=== PATIENT | male | born 1960 | race Caucasian/White ===

== ENCOUNTER 2020-07-28 08:21 | Outpatient (REF) | payer SELFPAY ==
[2020-07-28 09:12] LABS: Cholesterol 191 mg/dL
== END 2020-07-28 08:22 | disposition home or self-care (01) ==
LOC: HO.LNC 08:21
PROVIDERS: Visit Provider Pathology Anatomic Pathology & Clinical Pathology
DX: Z76.89 Persons encountering health services in other specified circumstances (principal)
CPT/HCPCS: 82465

== ENCOUNTER → 2020-08-27 10:28 | Outpatient (BNVA) | payer OTHER, SELFPAY | PROVIDERS: Visit Provider Physician Assistant | DX: Z76.89 Persons encountering health services in other specified circumstances (principal) ==

== ENCOUNTER 2020-08-31 07:05 | Outpatient (REF) | payer OTHER, SELFPAY ==
[2020-08-31 07:39] LABS: MANUAL DIFF FLAG NO
[2020-08-31 07:50] LABS: Basophils Percent Auto 0.5 % (0-2); Eosinophils Absolute Auto 0.2 X10*3/uL (0.0-0.4); Eosinophils Percent Auto 2.4 % (0-4); Hematocrit 45.1 % (42-52); Imm Gran Abs Auto 0.02 X10*3/uL (0.00-0.03); Imm Gran Pct Auto 0.3 % (0.0-0.4); Lymphocytes Absolute Auto 1.4 X10*3/uL (1.2-4.9); Lymphocytes Percent Auto 21.5 % (20-40); Mean Corpuscular HGB Conc 35.5 g/dl (31.0-36.0); Mean Corpuscular Hemoglobin 29.6 pg (27.0-33.0); Mean Corpuscular Volume 83.5 fL (80-98); Mean Platelet Volume 9.7 fL (9.4-12.4); Monocytes Absolute Auto 0.7 X10*3/uL (0.1-1.2); Monocytes Percent Auto 10.4 % (2-11); Neutrophils Absolute Auto 4.1 X10*3/uL (2.0-8.3); Neutrophils Percent Auto 64.9 % (45-73); Platelet Count 265 X10*3/uL (160-400); Red Cell Distribution Width 12.3 % (11.0-16.0); White Blood Count 6.3 X10*3/uL (4.8-10.8)
[2020-08-31 08:27] LABS: Prostate Specific Antigen 2.28 ng/mL (<0.05-4.0)
[2020-09-04 11:27] LABS: Testosterone, Total 491 ng/dL (250-1100)
== END 2020-08-31 07:06 | disposition home or self-care (01) ==
LOC: HO.LAB 07:05
PROVIDERS: Visit Provider Urology
DX: E29.1 Testicular hypofunction (principal); Z12.5 Encounter for screening for malignant neoplasm of prostate
CPT/HCPCS: 36415; 84153; 84403; 85025

== ENCOUNTER → 2020-09-04 10:55 | Outpatient (BNVA) | payer OTHER, SELFPAY | PROVIDERS: PCP Internal Medicine; Visit Provider Physician Assistant | DX: E66.01 Morbid (severe) obesity due to excess calories (principal); K21.9 Gastro-esophageal reflux disease without esophagitis; E78.00 Pure hypercholesterolemia, unspecified; G47.33 Obstructive sleep apnea (adult) (pediatric); G43.909 Migraine, unspecified, not intractable, without status migrainosus; M72.2 Plantar fascial fibromatosis; R73.02 Impaired glucose tolerance (oral) | CPT/HCPCS: 99202 ==

== ENCOUNTER 2020-09-10 16:27 | Outpatient (REF) | payer OTHER, SELFPAY ==
--- NOTE | 2020-09-10 16:32 | XR_ITS ---
EXAMINATION: XR KNEE, RIGHT CLINICAL INFORMATION: M25.561 - Pain in right knee COMPARISON: Radiographs right femur 03/06/2012 TECHNIQUE: Four views of the right knee. FINDINGS: There is no fracture, dislocation, or suprapatellar effusion. No joint narrowing or erosive change or chondrocalcinosis. No bony destructive process or periostitis. XR/XR knee RT 4V IMPRESSION: Normal right knee.
== END 2020-09-10 16:28 | disposition home or self-care (01) ==
LOC: HO.HMGCX 16:27
PROVIDERS: PCP Internal Medicine; Visit Provider Nurse Practitioner Family
DX: M25.561 Pain in right knee (principal)
CPT/HCPCS: 73564

== ENCOUNTER 2020-09-11 10:30 | Outpatient (REF) | payer OTHER, SELFPAY ==
--- NOTE | 2020-09-11 10:31 | US_ITS ---
EXAMINATION: US VENOUS ULTRASOUND WITH DOPPLER LOWER EXTREMITY, RIGHT CLINICAL INFORMATION: Right knee pain COMPARISON: None TECHNIQUE: Ultrasound of the deep veins is performed from the hip to the calf with compression sonography and color and pulse Doppler assessment. Spectral analysis with color-flow imaging is performed. FINDINGS: There is normal venous compression and respiratory variation and augmented flow. The visualized common femoral vein, superficial femoral vein, profunda femoral vein, popliteal vein, and the trifurcation region shows no evidence of deep venous thrombosis. There is no significant popliteal fossa cyst. US/US venous duplex LE RT IMPRESSION: No DVT demonstrated in the right lower extremity.
== END 2020-09-11 10:31 | disposition home or self-care (01) ==
LOC: HO.HMGCX 10:30
PROVIDERS: PCP Internal Medicine; Visit Provider Nurse Practitioner Family
DX: M25.561 Pain in right knee (principal); R60.0 Localized edema
CPT/HCPCS: 93971

== ENCOUNTER → 2020-09-15 08:44 | Outpatient (BNVA) | payer OTHER, SELFPAY | PROVIDERS: PCP Internal Medicine; Visit Provider Urology | DX: R36.1 Hematospermia (principal); E29.1 Testicular hypofunction; R33.9 Retention of urine, unspecified | CPT/HCPCS: Q3014 ==

== ENCOUNTER → 2020-09-29 08:49 | Outpatient (BNVA) | payer OTHER, SELFPAY | PROVIDERS: PCP Internal Medicine; Visit Provider Urology | DX: Z13.89 Encounter for screening for other disorder (principal) | CPT/HCPCS: 99212 ==

== ENCOUNTER → 2020-10-28 13:02 | Outpatient (BNVA) | payer OTHER, SELFPAY | PROVIDERS: PCP Internal Medicine; Visit Provider Urology | DX: N41.9 Inflammatory disease of prostate, unspecified (principal) | CPT/HCPCS: 52000; 81002; 99212 ==

== ENCOUNTER → 2020-12-04 14:56 | Outpatient (BNVA) | payer OTHER, SELFPAY | PROVIDERS: PCP Internal Medicine; Visit Provider Urology | CPT/HCPCS: Q3014 ==

== ENCOUNTER → 2021-01-08 15:19 | Outpatient (BNVA) | payer OTHER, SELFPAY | PROVIDERS: PCP Internal Medicine; Visit Provider Urology | CPT/HCPCS: Q3014 ==

== ENCOUNTER → 2021-02-01 10:03 | Outpatient (REF) | payer OTHER, SELFPAY | LOC: HO.SL 10:03 | PROVIDERS: PCP Internal Medicine; Visit Provider Internal Medicine | DX: G47.33 Obstructive sleep apnea (adult) (pediatric) (principal) | CPT/HCPCS: 95806 ==

== ENCOUNTER → 2021-02-11 12:53 | Outpatient (BNVA) | payer OTHER, SELFPAY | PROVIDERS: PCP Internal Medicine; Visit Provider Internal Medicine | DX: E66.01 Morbid (severe) obesity due to excess calories (principal); G47.33 Obstructive sleep apnea (adult) (pediatric) | CPT/HCPCS: 99202 ==

== ENCOUNTER → 2021-02-18 11:59 | Outpatient (BNVA) | payer OTHER, SELFPAY | PROVIDERS: Visit Provider Urology | DX: Z13.89 Encounter for screening for other disorder (principal) | CPT/HCPCS: Q3014 ==

== ENCOUNTER → 2021-04-12 11:17 | Outpatient (BNVA) | payer OTHER, SELFPAY | PROVIDERS: PCP Internal Medicine; Visit Provider Internal Medicine | DX: G47.33 Obstructive sleep apnea (adult) (pediatric) (principal); E66.01 Morbid (severe) obesity due to excess calories; Z79.899 Other long term (current) drug therapy | CPT/HCPCS: 99212 ==

== ENCOUNTER 2021-04-16 10:27 | Outpatient (REF) | payer OTHER, SELFPAY ==
[2021-04-16 11:01] LABS: MANUAL DIFF FLAG NO
[2021-04-16 11:11] LABS: Basophils Percent Auto 0.7 % (0-2); Eosinophils Absolute Auto 0.2 X10*3/uL (0.0-0.4); Eosinophils Percent Auto 2.7 % (0-4); Hematocrit 42.8 % (42-52); Hemoglobin 14.8 g/dl (14.0-18.0); Imm Gran Abs Auto 0.01 X10*3/uL (0.00-0.03); Imm Gran Pct Auto 0.2 % (0.0-0.4); Lymphocytes Absolute Auto 1.3 X10*3/uL (1.2-4.9); Lymphocytes Percent Auto 22.4 % (20-40); Mean Corpuscular HGB Conc 34.6 g/dl (31.0-36.0); Mean Corpuscular Hemoglobin 27.7 pg (27.0-33.0); Mean Corpuscular Volume 80.1 fL (80-98); Mean Platelet Volume 10.1 fL (9.4-12.4); Monocytes Absolute Auto 0.6 X10*3/uL (0.1-1.2); Monocytes Percent Auto 10.6 % (2-11); Neutrophils Absolute Auto 3.6 X10*3/uL (2.0-8.3); Neutrophils Percent Auto 63.4 % (45-73); Platelet Count 259 X10*3/uL (160-400); Red Blood Count 5.34 X10*6/uL (4.60-5.80); Red Cell Distribution Width 14.7 % (11.0-16.0); White Blood Count 5.6 X10*3/uL (4.8-10.8)
[2021-04-16 11:26] LABS: Alanine Aminotransferase 28 U/L (0-40); Albumin Level 4.2 g/dL (3.5-5.0); Alkaline Phosphatase 62 U/L (39-117); Anion Gap 10 (12-20); Aspartate Amino Transferase 25 U/L (5-37); Bilirubin Total 0.8 mg/dL (0.0-1.0); Blood Urea Nitrogen 12 mg/dL (9-16); Calcium 9.3 mg/dL (8.4-10.2); Carbon Dioxide 26 mmol/L (22-29); Chloride 105 mmol/L (96-108); Cholesterol 191 mg/dL; Estimated Glomerular Filt Rate > 60; Glucose Random 96 mg/dL (60-115); HDL Cholesterol 51 mg/dL; LDL Cholesterol Calculated 121 mg/dl; Potassium 4.4 mmol/L (3.3-5.1); Sodium 137 mmol/L (135-145); Total Protein 6.7 g/dL (6.5-8.0); Triglycerides 95 mg/dL
[2021-04-16 11:46] LABS: Prostate Specific Antigen Scr 3.19 ng/mL (<0.05-4.0)
[2021-04-16 12:05] LABS: Estimated Average Glucose 111 mg/dL; Hemoglobin A1c % 5.5 %
[2021-04-22 19:31] LABS: Testosterone, Free 119.6 pg/mL (35.0-155.0); Testosterone, Total 598 ng/dL (250-1100)
== END 2021-04-16 10:28 | disposition home or self-care (01) ==
LOC: HO.LAB 10:27
PROVIDERS: PCP Internal Medicine; Visit Provider Internal Medicine
DX: Z12.5 Encounter for screening for malignant neoplasm of prostate (principal); R73.02 Impaired glucose tolerance (oral); E29.1 Testicular hypofunction
CPT/HCPCS: 36415; 80053; 80061; 83036; 84153; 84402; 84403; 84439; 84443; 85025

== ENCOUNTER → 2021-05-05 11:02 | Outpatient (BNVA) | payer OTHER, SELFPAY | PROVIDERS: PCP Internal Medicine; Visit Provider Internal Medicine | DX: G47.33 Obstructive sleep apnea (adult) (pediatric) (principal); E66.01 Morbid (severe) obesity due to excess calories | CPT/HCPCS: 99212 ==

== ENCOUNTER → 2021-08-24 13:44 | Outpatient (BNVA) | payer OTHER, SELFPAY | PROVIDERS: PCP Internal Medicine; Visit Provider Urology | DX: N32.81 Overactive bladder (principal); N31.8 Other neuromuscular dysfunction of bladder; R35.1 Nocturia; E29.1 Testicular hypofunction | CPT/HCPCS: 51798; 99212 ==

== ENCOUNTER → 2021-09-28 09:43 | Outpatient (BNVA) | payer OTHER, SELFPAY | PROVIDERS: PCP Internal Medicine; Visit Provider Urology | DX: Z13.89 Encounter for screening for other disorder (principal) | CPT/HCPCS: Q3014 ==

== ENCOUNTER 2021-10-29 08:28 | Outpatient (REF) | payer OTHER, SELFPAY ==
--- NOTE | ~2021-10-29 | FL_ITS ---
EXAMINATION: FL UPPER GI CONTRAST STUDY CLINICAL INFORMATION: Dysphagia COMPARISON: None TECHNIQUE: Routine upper GI air-contrast study was performed. FINDINGS: Following oral administration of thick barium and effervescent granules there is a small Zenker's nubbing but no diverticulum seen. Mild prominence of cricoesophageal sphincter is present. There is no obstruction. Otherwise there is normal propagation of bolus from the oral cavity through the pharynx, esophagus into stomach without any evidence of obstruction, narrowing or stricture. On placing the patient supine and prone, the course, caliber and the peristalsis of the stomach and the duodenum is normal. There are increased secretions likely from hyperacidity. No gastroesophageal reflux or hiatal hernia seen. The mucosal pattern of the stomach and the duodenum is normal except for a moderate to large diverticulum arising off the second segment of the duodenum. FL/FL upper GI w air w Ba Swallow IMPRESSION: Unremarkable upper GI exam except for mild hyperacidity. No gastroesophageal reflux or hiatal hernia.
== END 2021-10-29 08:29 | disposition home or self-care (01) ==
LOC: HO.XRAY 08:28
PROVIDERS: Visit Provider Internal Medicine
DX: R13.10 Dysphagia, unspecified (principal); K21.9 Gastro-esophageal reflux disease without esophagitis
CPT/HCPCS: 74246

== ENCOUNTER → 2021-11-01 09:30 | Outpatient (BNVA) | payer OTHER, SELFPAY | PROVIDERS: PCP Internal Medicine; Visit Provider Internal Medicine | DX: G47.33 Obstructive sleep apnea (adult) (pediatric) (principal); E29.1 Testicular hypofunction; E66.01 Morbid (severe) obesity due to excess calories; Z68.42 Body mass index [BMI] 45.0-49.9, adult; Z99.89 Dependence on other enabling machines and devices; Z79.899 Other long term (current) drug therapy | CPT/HCPCS: 99212 ==

== ENCOUNTER → 2021-11-24 10:43 | Outpatient (BNVA) | payer OTHER, SELFPAY | PROVIDERS: PCP Internal Medicine; Visit Provider Orthopaedic Surgery | DX: M65.342 Trigger finger, left ring finger (principal) | CPT/HCPCS: 20550; 99202; J1100 ==

== ENCOUNTER → 2022-03-31 08:18 | Outpatient (BNVA) | payer OTHER, SELFPAY | PROVIDERS: PCP Internal Medicine; Visit Provider Urology | DX: R35.1 Nocturia (principal); N32.81 Overactive bladder | CPT/HCPCS: Q3014 ==

== ENCOUNTER → 2022-05-03 10:57 | Outpatient (BNVA) | payer OTHER, SELFPAY | PROVIDERS: PCP Internal Medicine; Visit Provider Internal Medicine | DX: E66.01 Morbid (severe) obesity due to excess calories (principal); G47.33 Obstructive sleep apnea (adult) (pediatric); Z99.89 Dependence on other enabling machines and devices | CPT/HCPCS: 99212; Q3014 ==

== ENCOUNTER → 2022-05-19 13:09 | Outpatient (BNVA) | payer OTHER, SELFPAY | PROVIDERS: PCP Internal Medicine; Visit Provider Urology | DX: E29.1 Testicular hypofunction (principal) | CPT/HCPCS: Q3014 ==

== ENCOUNTER 2022-06-02 06:16 | Outpatient (REF) | payer OTHER, SELFPAY ==
[2022-06-02 07:33] LABS: Hematocrit 46.1 % (42.0-52.0); Hemoglobin 15.2 g/dl (14.0-18.0); Mean Corpuscular Hemoglobin 26.4 pg (27.0-33.0); Mean Corpuscular Volume 80.2 fL (80.0-98.0); Mean Platelet Volume 9.6 fL (9.4-12.4); Platelet Count 292 X10*3/uL (160-400); Red Blood Count 5.75 X10*6/uL (4.60-5.80)
[2022-06-02 08:15] LABS: Prostate Specific Antigen 2.96 ng/mL (<0.05-4.0)
[2022-06-08 10:56] LABS: Testosterone, Total 473 ng/dL (250-1100)
== END 2022-06-02 06:17 | disposition home or self-care (01) ==
LOC: HO.LAB 06:16
PROVIDERS: PCP Internal Medicine; Visit Provider Urology
DX: Z12.5 Encounter for screening for malignant neoplasm of prostate (principal); E29.1 Testicular hypofunction
CPT/HCPCS: 36415; 84153; 84403; 85027

== ENCOUNTER 2022-06-06 10:05 | Day surgery (SDC) | payer OTHER, SELFPAY ==
[2022-05-31 16:22] VITALS: BMI 42.4
--- NOTE | 2022-06-03 10:42 | P.CONAN_ITS ---
Documented by User: Dalia Kumar NP 06/03/22 10:43 HPI - Anesthesia Eval Consult details Narrative: 61yo M for Cystoscopy Botox Injection Pulmo cleared PMFSH Active Problems Active Problems: All Active Problems (Updated 05/03/22 @ 11:20 by Rafael Cramer MD) Trigger finger, left ring finger (Acute) Trigger finger of left hand (Acute) Tubular adenoma of colon (Acute) Gastric hyperacidity (Acute) Foreign body of toe of right foot (Acute) Myalgia (Acute) Hypertension (Acute) Generalized anxiety disorder (Acute) Morbid obesity (Acute) Obstructive sleep apnea (adult) (pediatric) (Acute) Nocturia more than twice per night (Acute) Overactive bladder (Acute) Prostatitis (Acute) Knee pain, right (Acute) Bladder outlet obstruction (Acute) GERD (gastroesophageal reflux disease) (Acute) Neuropathy (Acute ~04/2020) Migraine (Acute ~12/2019) Plantar fasciitis, bilateral (Acute) Impaired glucose tolerance (Acute) Hypercholesterolemia (Acute) Urinary retention (Acute) Hypogonadism in male (Acute) Obstructive sleep apnea (Acute) Past Medical History Medical History Acute meniscal tear of left knee Axillary nerve injury Chondromalacia, patella Dislocation of right shoulder joint GERD (gastroesophageal reflux disease) Hematospermia Hemospermia Hypercholesterolemia Hypogonadism in male Impaired glucose tolerance Iron deficiency anemia Knee pain Osteochondritis dissecans, 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 Plantar fasciitis, bilateral Small bowel obstruction Tubular adenoma of colon Umbilical hernia, incarcerated Urinary retention Family History Family History Father TIA (transient ischemic attack) Asthma Stroke Diabetes Hypertension Mother Asthma Cancer Dementia Paternal Grandmother Lung cancer Maternal Aunt Cancer Son Substance use disorder Surgical History Surgical History History of meniscal tear History of shoulder surgery History of umbilical hernia repair Social History Social History Housing: House Alcohol intake: current Alcohol intake frequency: holidays/special occasions only Patient Tobacco Use Status: Never used Tobacco e-Cigarette/Vaping Use: Never Used Second Hand Smoke Exposure: No Use of substances other than those prescribed or required for medical reasons: No Are you DNR?: No Advance Directives: No Advance Directives Information Provided: Yes service: No Current occupational status: disabled Cognitive needs: No Hearing needs: No Vision needs: No Meds Allergies Allergy/AdvReac Type Severity Reaction Status Date / Time No Known Allergies Allergy Verified 05/16/22 15:09 Home Medications Medication Instructions Recorded Confirmed Last Taken Type cholecalciferol (vitamin D3) 25 25 mcg PO DAILY 05/28/20 05/19/22 Unknown History mcg (1,000 unit) capsule magnesium oxide 500 mg capsule 500 mg PO DAILY 05/28/20 05/19/22 Unknown History multivitamin 1 tab PO DAILY 05/28/20 05/19/22 Unknown History Exam Exam Date and Time: June 03, 2022 1042 Height,Weight and Vital Signs: Height 5 ft 4 in Weight 112.037 kg Pertinent Lab Results Pertinent Lab Results: Laboratory Tests 06/02/22 06:47 WBC 6.0 Hgb 15.2 Hct 46.1 Plt Count 292 Assessment and Plan Assessment Anesthesia Assessment: Chart Reviewed Documented by User: Yolie eLyva MD 06/06/22 12:08 [facility] Past Medical History Medical History Acute meniscal tear of left knee Axillary nerve injury Chondromalacia, patella Dislocation of right shoulder joint GERD (gastroesophageal reflux disease) Hematospermia Hemospermia Hypercholesterolemia Hypogonadism in male Impaired glucose tolerance Iron deficiency anemia Knee pain Osteochondritis dissecans, 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 Plantar fasciitis, bilateral Small bowel obstruction Tubular adenoma of colon Umbilical hernia, incarcerated Urinary retention Family History Family History Father TIA (transient ischemic attack) Asthma Stroke Diabetes Hypertension Mother Asthma Cancer Dementia Paternal Grandmother Lung cancer Maternal Aunt Cancer Son Substance use disorder Surgical History Surgical History History of meniscal tear History of shoulder surgery History of umbilical hernia repair History of Problems with Anesthesia: No Social History Social History Housing: House Alcohol intake: current Alcohol intake frequency: holidays/special occasions only Patient Tobacco Use Status: Never used Tobacco e-Cigarette/Vaping Use: Never Used Second Hand Smoke Exposure: No Use of substances other than those prescribed or required for medical reasons: No Are you DNR?: No Advance Directives: No Advance Directives Information Provided: Yes service: No Current occupational status: disabled Cognitive needs: No Hearing needs: No Vision needs: No Meds Allergies Allergy/AdvReac Type Severity Reaction Status Date / Time No Known Allergies Allergy Verified 05/16/22 15:09 Home Medications Medication Instructions Recorded Confirmed Last Taken Type cholecalciferol (vitamin D3) 25 25 mcg PO DAILY 05/28/20 05/19/22 Unknown History mcg (1,000 unit) capsule magnesium oxide 500 mg capsule 500 mg PO DAILY 05/28/20 05/19/22 Unknown History multivitamin 1 tab PO DAILY 05/28/20 05/19/22 Unknown History Exam Airway Mallampati Class: III TM Dist: >3cm Neck ROM: Full Loose/Missing/Broken Teeth: No Heart: RRR Lungs: CTA Assessment and Plan Assessment Anesthesia Assessment: Anesthesia Plan Discussed Final Anesthetic Review History of Problems with Anesthesia: No NPO: Yes ASA Class: III Final Preanesthetic Review: Meds/Allgs Chart Reviewed, Consent Obtained/Reviewed and Anes Risks/Benef Reviewed Patient Risk: Intermediate Procedure Risk: Low Anesthetic Plan Anesthetic Plan: MAC: Disposition: Standard PACU
[2022-06-06] VITALS (8 sets, daily range): BP systolic 125–142; BP diastolic 79–93; PULSE 68–94; RESP 18–20; TEMP 36.1–37.3; O2SAT 96–98; BMI 41.1
[2022-06-06] MEDS: Acetaminophen 325 MG TABLET 650 MG PO (10:45)
[2022-06-06] MEDS: Lactated Ringers 1,000 ML 100 ML IVCONT (10:46)
[2022-06-06] MEDS: levoFLOXacin 500 MG TABLET PO (10:46)
--- NOTE | 2022-06-06 12:23 | P.HPSUR_ITS ---
Pre-Procedural Eval Section A Date of Service: 06/06/22 The patient is an INPATIENT: No Changes since office visit: No Cold of Flu in the past 2 weeks, No New Medical Problems, No Changes in Medication and No Patient answered all questions The History & Physical has been completed within 30 days and I have reviewed it.: No Section B Chief Complaint: overactive bladder Details of Present Illness: Failed oral medications Relevant Family History (Specify if Yes): No Relevant Social History: None Present Medications: see Short Stay Collaborative assessment Medical History: Significant History History of Previous Operations: No relevant previous surgery Allergies: Allergies Allergy/AdvReac Type Severity Reaction Status Date / Time No Known Allergies Allergy Verified 05/16/22 15:09 Review of Systems Sugical H&P ROS: Negative: Constitution, Cardiovascular, Respiratory, Neurological, Psychiatric, Hem-Onc, Allergic/Immunologic, Gastrointestinal, Genitourinary, Musculoskeletal, Integumentary, Endocrine and Eyes/Ears/Nose/Throat Exam Surgical H&P Exam: Normal: HEENT, Normal: Heart, Normal: Lungs, Normal: Ext remities, Normal: Abdomen, Normal: Skin and Normal: Neurological Plan Diagnosis/Plan: Unchanged (Cystoscopy and Botox bladder injection) I have reviewed the history and physical and performed a pertinent physical examination on my patient. No changes have occurred unless specified.
--- NOTE | 2022-06-06 12:47 | W.PM.OPN ---
Operative Note Operative Note Date of Service: 06/06/22 Narrative: PreOperative Diagnosis: Overactive bladder with failure of medications Post Operative Diagnosis: Overactive bladder with failure of medications Procedure: Cystoscopy with injection 100 units Botox intra detrusor muscle Surgeon: Dr Harjit Awan Anesthesia: Sedation Indications for procedure: Is a very pleasant 61 yr male. Has persistent urgency and frequency. Has failed oral medications. For cystoscopy and Botox injection. Is aware of the risks and benefits particularly related to urinary retention and possible infection. Procedure: After informed consent was verified the patient was brought to the operating room and placed in a supine position. Anesthesia was administered per protocol. Cystoscopy performed with 22 [place] cystoscope. Bladder was emptied of urine. Bladder was refilled. Using 100 units of Botox mixed in 10 cc of normal saline injections were placed at the back wall of the bladder. 0.5cc placed at each injection site. Injections were placed in a grid 5 across and for high. Injections were placed from the inferior to superior position. Trabeculations on the bladder wall with targeted for each injection site. Procedure was tolerated well. Patient was extubated and transferred in stable condition to the recovery area. Pathology: None Drains: None
[2022-06-06] MEDS: Phenazopyridine HCL 100 MG TABLET PO (14:06)
== END 2022-06-06 14:07 | disposition home or self-care (01) ==
PROVIDERS: PCP Internal Medicine; Visit Provider Urology
PROC: 3E0K8GC Introduction of Other Therapeutic Substance into Genitourinary Tract, Via Natural or Artificial Opening Endoscopic (ICD-10-PCS; CPT 52287; principal; 2022-06-06 12:30)
DX: N32.81 Overactive bladder (principal); N32.89 Other specified disorders of bladder; E29.1 Testicular hypofunction; N52.9 Male erectile dysfunction, unspecified; Z79.899 Other long term (current) drug therapy
CPT/HCPCS: 52287; J0585; J2250

== ENCOUNTER → 2022-06-21 10:42 | Outpatient (BNVA) | payer OTHER, SELFPAY | PROVIDERS: PCP Internal Medicine; Visit Provider Urology | DX: N32.0 Bladder-neck obstruction (principal); R35.1 Nocturia; R39.15 Urgency of urination | CPT/HCPCS: 51798; 99212 ==

== ENCOUNTER → 2022-07-05 09:30 | Outpatient (BNVA) | payer OTHER, SELFPAY | PROVIDERS: PCP Internal Medicine; Visit Provider Urology | DX: N32.81 Overactive bladder (principal) | CPT/HCPCS: 51798 ==

== ENCOUNTER → 2022-07-19 09:30 | Outpatient (BNVA) | payer OTHER, SELFPAY | PROVIDERS: PCP Internal Medicine; Visit Provider Urology | DX: N32.81 Overactive bladder (principal) | CPT/HCPCS: 51798 ==

== ENCOUNTER 2022-09-16 08:24 | Day surgery (SDC) | payer OTHER, SELFPAY ==
[2022-09-16 08:38] VITALS: BMI 43.7
[2022-09-16 08:45] VITALS: BP 142/83; PULSE 82; RESP 16; TEMP 36.4; O2SAT 96
[2022-09-16] MEDS: Lactated Ringers 1,000 ML 50 ML IVCONT (09:01)
--- NOTE | 2022-09-16 09:30 | P.CONAN_ITS ---
HPI - Anesthesia Eval Consult details Narrative: For EGD and colonoscopy. [facility] Active Problems Active Problems: All Active Problems (Updated 06/21/22 @ 11:46 by Harjit Awan MD) Urinary urgency (Acute) Trigger finger, left ring finger (Acute) Trigger finger of left hand (Acute) Tubular adenoma of colon (Acute) Gastric hyperacidity (Acute) Foreign body of toe of right foot (Acute) Myalgia (Acute) Hypertension (Acute) Generalized anxiety disorder (Acute) Morbid obesity (Acute) Obstructive sleep apnea (adult) (pediatric) (Acute) Nocturia more than twice per night (Acute) Overactive bladder (Acute) Prostatitis (Acute) Knee pain, right (Acute) Bladder outlet obstruction (Acute) GERD (gastroesophageal reflux disease) (Acute) Neuropathy (Acute ~04/2020) Migraine (Acute ~12/2019) Plantar fasciitis, bilateral (Acute) Impaired glucose tolerance (Acute) Hypercholesterolemia (Acute) Urinary retention (Acute) Hypogonadism in male (Acute) Obstructive sleep apnea (Acute) Past Medical History Medical History Acute meniscal tear of left knee Axillary nerve injury Chondromalacia, patella Dislocation of right shoulder joint GERD (gastroesophageal reflux disease) Hematospermia Hemospermia Hypercholesterolemia Hypogonadism in male Impaired glucose tolerance Iron deficiency anemia Knee pain Osteochondritis dissecans, 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 Plantar fasciitis, bilateral Small bowel obstruction Tubular adenoma of colon Umbilical hernia, incarcerated Urinary retention Family History Family History Father TIA (transient ischemic attack) Asthma Stroke Diabetes Hypertension Mother Asthma Cancer Dementia Paternal Grandmother Lung cancer Maternal Aunt Cancer Son Substance use disorder Family history of problems with anesthesia: No Surgical History Surgical History History of meniscal tear History of shoulder surgery History of umbilical hernia repair History of Problems with Anesthesia: No Social History Social History Housing: House Alcohol intake: current Alcohol intake frequency: holidays/special occasions only Patient Tobacco Use Status: Never used Tobacco e-Cigarette/Vaping Use: Never Used Second Hand Smoke Exposure: No Use of substances other than those prescribed or required for medical reasons: No Are you DNR?: No Advance Directives: No Advance Directives Information Provided: Yes service: No Current occupational status: disabled Cognitive needs: No Hearing needs: No Vision needs: No Meds Allergies Allergy/AdvReac Type Severity Reaction Status Date / Time No Known Allergies Allergy Verified 06/21/22 11:38 Active Medications: Current Medications Lactated Ringer's (Lr) 1,000 mls @ 50 mls/hr IVCONT .Q20H PROSPER Last Admin: 09/16/22 09:01 Dose: 50 mls/hr Sodium Biphosphate/Sodium Phosphate (Sodium Phosphate,[place]-Dibasic 133 Ml Enema) 133 ml [place] ONCE PRN PRN Reason: Poor Colonoscopy Prep Results Home Medications Medication Instructions Recorded Confirmed Last Taken Type cholecalciferol (vitamin D3) 25 25 mcg PO DAILY 05/28/20 09/16/22 Unknown History mcg (1,000 unit) capsule magnesium oxide 500 mg capsule 500 mg PO DAILY 05/28/20 09/16/22 Unknown History multivitamin 1 tab PO DAILY 05/28/20 09/16/22 Unknown History syringe with needle 1 mL 27 x 1/2 #25 ea 06/20/22 Unknown History (BD Tuberculin Syringe) Exam Exam Date and Time: September 16, 2022 0930 Height,Weight and Vital Signs: Height 5 ft 4 in Weight 115.666 kg Last Vital Signs Temp 97.6 F 09/16/22 08:45 Pulse 82 09/16/22 08:45 Resp 16 09/16/22 08:45 BP 142/83 H 09/16/22 08:45 Pulse Ox 96 09/16/22 08:45 O2 Del Method 09/16/22 08:45 Airway Mallampati Class: II TM Dist: <=3cm Neck ROM: Full Heart: ok Lungs: ok Assessment and Plan Assessment Anesthesia Assessment: Anesthesia Plan Discussed and Chart Reviewed Final Anesthetic Review Family History of Problems with Anesthesia: No History of Problems with Anesthesia: No NPO: Yes ASA Class: III Final Preanesthetic Review: No Changes in Pt Med Stat, Meds/Allgs Chart Reviewed, Consent Obtained/Reviewed and Anes Risks/Benef Reviewed Patient Risk: Intermediate Procedure Risk: Intermediate Anesthetic Plan Anesthetic Plan: MAC: and Agree w/ Assess. and Plan Disposition: Standard PACU
[2022-09-16 10:46] VITALS: BP 114/71; PULSE 71; RESP 18; TEMP 36.1; O2SAT 97
--- NOTE | 2022-09-16 10:49 | PM.OP ---
Brief Operative Note Date of Service: 09/16/22 Pre-op diagnosis: Belching, Screening Post-op diagnosis: other (Erosive gastritis, Small hiatal hernia, Polyps) Surgeon: Caesar Osman Anesthesia: MAC Was an Public Information Director used for this Procedure?: No Estimated blood loss (mL): 2.0 Pathology: other (A. Gastric antrum B. EG Junction at 39cm C. Colon polyp at 20cm D. Rectal polyp) Condition: stable Disposition: PACU
[2022-09-16 11:05] VITALS: BP 123/87; PULSE 64; RESP 18; TEMP 36.1; O2SAT 99
--- NOTE | 2022-09-16 12:19 | OP_ITS ---
SURGEON: Caesar Osman MD INDICATIONS: The patient presents for evaluation of chronic belching, personal history of tubular adenoma of the colon, and need for colorectal cancer screening. Full consent has been obtained from him for both procedures, including risks of bleeding and perforation. PREOPERATIVE DIAGNOSIS: POSTOPERATIVE DIAGNOSIS: PROCEDURE PERFORMED: Esophagogastroduodenoscopy with biopsies and colonoscopy to the cecum with biopsy and removal of polyps. ESTIMATED BLOOD LOSS: COMPLICATIONS: ANESTHESIA: Monitored anesthesia care. ASSISTANTS: SPECIMENS: PREOPERATIVE DIAGNOSES: Belching, personal history of tubular adenoma of the colon, colorectal cancer screening. POSTOPERATIVE DIAGNOSES: Belching, personal history of tubular adenoma of the colon, colorectal cancer screening, erosive gastritis, small hiatal hernia, small colon polyps, diverticulosis, internal hemorrhoids. DESCRIPTION OF PROCEDURE: The patient was placed in the left lateral decubitus position. The Olympus video gastroscope was passed in the posterior oropharynx and upper esophagus under direct vision. The scope was passed slowly into the distal esophagus. The gastroesophageal junction appeared at 39 cm. There was some slight erythema and edema, but no evidence of erosive esophagitis nor Armstrong mucosa. There was a small hiatal hernia. The scope was advanced into the pylorus, and the duodenum was cannulated to the descending portion. The duodenum including the bulb appeared normal without mass or ulceration. The scope was withdrawn back in the stomach. The gastric antrum and areas of some erosions, erythema, and edema. There was good peristalsis. There was no mass nor ulceration. Biopsies were obtained from the gastric antrum. The scope was retroflexed visualizing the proximal stomach carefully, which appeared normal, without any sign of mass or ulceration. The scope was straightened and withdrawn back to the esophagus. Biopsies were obtained at the EG junction at 39 cm. Proximal to this, the esophageal mucosa appeared normal. The scope was withdrawn from the patient. He tolerated the procedure well, and was turned around for the colonoscopy. The digital rectal exam revealed no abnormalities. The Olympus video pediatric colonoscope was entered into the rectum and advanced into the cecum with the assistance of the abdominal wall pressure. once in the cecum, I did identify a normal-appearing cecal pouch with appendiceal orifice and a normal-appearing ileocecal valve. The entire cecum and ileocecal valve appear normal. Scope was slowly withdrawn assessing all mucosal surface carefully. Preparation was excellent. At 20 cm and in the rectum were flat 4 mm or 5 mm polyps, which were each biopsied and completely removed with the cold biopsy forceps. I did not visualize any other polyps, colitis, nor angiodysplasia. There was a mild amount of sigmoid diverticulosis. In the rectum, the scope was retroflexed visualizing some small internal hemorrhoids, but no other pathology. The rectal mucosa appeared normal. The scope was straightened and withdrawn from the patient. He tolerated the procedure well and was returned to the recovery area in stable condition. IMPRESSION: 1. Erosive gastritis. 2. Small hiatal hernia, gastroesophageal reflux. 3. Small colon polyps. 4. Diverticulosis. 5. Internal hemorrhoids. PLAN: The results of the pathology will be checked. I would recommend a repeat colonoscopy in 5 years for further surveillance. He was advised not to use any aspirin or NSAIDs for at least 1 week. Given the upper endoscopy finding and his symptoms of belching, I shall start him on omeprazole 20 mg daily to see if that could give him any relief. He was advised to see me later in a year for followup. MD YANG Heredia/RAHUL / [id number]
== END 2022-09-16 11:20 | disposition home or self-care (01) ==
PROVIDERS: PCP Internal Medicine; Visit Provider Internal Medicine
PROC: (CPT 45380; principal; 2022-09-16 09:30)
DX: Z12.11 Encounter for screening for malignant neoplasm of colon (principal); Z86.010 Personal history of colon polyps; D12.8 Benign neoplasm of rectum; K63.5 Polyp of colon; K57.30 Diverticulosis of large intestine without perforation or abscess without bleeding; K64.8 Other hemorrhoids; K21.9 Gastro-esophageal reflux disease without esophagitis; R14.2 Eructation; K29.50 Unspecified chronic gastritis without bleeding; K44.9 Diaphragmatic hernia without obstruction or gangrene; G47.33 Obstructive sleep apnea (adult) (pediatric); Z99.89 Dependence on other enabling machines and devices; Z79.899 Other long term (current) drug therapy
CPT/HCPCS: 45380; 43239; 88305; 88342; J3010

== ENCOUNTER → 2022-09-23 11:16 | Outpatient (BNVA) | payer OTHER, SELFPAY | PROVIDERS: PCP Internal Medicine; Visit Provider Urology | DX: N40.1 Benign prostatic hyperplasia with lower urinary tract symptoms (principal); N13.8 Other obstructive and reflux uropathy; E29.1 Testicular hypofunction; R39.15 Urgency of urination; Z79.899 Other long term (current) drug therapy | CPT/HCPCS: 51798; 99212 ==

== ENCOUNTER → 2022-11-15 10:39 | Outpatient (BNVA) | payer OTHER, SELFPAY | PROVIDERS: PCP Internal Medicine; Visit Provider Internal Medicine | DX: E66.01 Morbid (severe) obesity due to excess calories (principal); G47.33 Obstructive sleep apnea (adult) (pediatric); Z68.42 Body mass index [BMI] 45.0-49.9, adult | CPT/HCPCS: 99212 ==

== ENCOUNTER → 2022-12-01 08:58 | Outpatient (BNVA) | payer OTHER, SELFPAY | PROVIDERS: PCP Internal Medicine; Visit Provider Urology | DX: E29.1 Testicular hypofunction (principal); R35.1 Nocturia; N40.1 Benign prostatic hyperplasia with lower urinary tract symptoms; N13.8 Other obstructive and reflux uropathy | CPT/HCPCS: 51798; 99212 ==

== ENCOUNTER 2023-05-16 07:08 | Outpatient (REF) | payer OTHER, SELFPAY ==
[2023-05-16 07:34] LABS: Hematocrit 41.9 % (42.0-52.0); Hemoglobin 13.4 g/dl (14.0-18.0); Mean Corpuscular Hemoglobin 24.1 pg (27.0-33.0); Mean Corpuscular Volume 75.4 fL (80.0-98.0); Mean Platelet Volume 9.4 fL (9.4-12.4); Platelet Count 288 X10*3/uL (160-400); Red Blood Count 5.56 X10*6/uL (4.60-5.80); Red Cell Distribution Width 19.3 % (11.0-16.0); White Blood Count 5.8 X10*3/uL (4.8-10.8)
[2023-05-16 09:18] LABS: Prostate Specific Antigen 3.64 ng/mL (<0.05-4.0)
[2023-05-21 14:18] LABS: Testosterone, Total 590 ng/dL (250-1100)
== END 2023-05-16 07:09 | disposition home or self-care (01) ==
LOC: HO.LAB 07:08
PROVIDERS: PCP Internal Medicine; Visit Provider Urology
DX: G47.33 Obstructive sleep apnea (adult) (pediatric) (principal); E66.01 Morbid (severe) obesity due to excess calories; Z68.42 Body mass index [BMI] 45.0-49.9, adult; Z12.5 Encounter for screening for malignant neoplasm of prostate; Z99.89 Dependence on other enabling machines and devices; E29.1 Testicular hypofunction
CPT/HCPCS: 36415; 84153; 84403; 85027; 99212

== ENCOUNTER 2023-05-16 09:36 | Outpatient (AMB) | payer OTHER, SELFPAY ==
--- NOTE | 2023-05-16 09:40 | A.OFFVIS_ITS ---
Intake Vital Signs 05/16/23 09:42 Height 5 ft 4 in Weight 262 lb BMI 45.0 BP 120/72 Blood Pressure Location Lt brachial Position Sitting Pulse 67 Pulse Source Pulse Oximeter Pulse Oximetry (%) 98 Oxygen Delivery Method Room Air Intake Visit Reasons: Dyspnea Intake Note: pt is here for follow up and states he is doing well. using cpap but having a l ot of issues with electricity in the city and misses some nights. Giving Officer Required: No Allergies No Known Allergies Allergy (Verified 05/16/23 09:55) Medication List - Last Reconciled 05/16/23 by Rafael Cramer MD cholecalciferol (vitamin D3) 25 mcg PO DAILY [cpap As directed] magnesium oxide 500 mg PO DAILY multivitamin 1 tab PO DAILY syringe with needle (BD Tuberculin Syringe) As directed syringe with needle (Monoject TB) As directed Qweekly testosterone cypionate (Depo-Testosterone) 80 mg (0.4 mL) subcut QWEEK 4 weeks Do you need a note to return to daycare/school/sports/work: No HPI Dyspnea HPI Details 62 YEARS OLD GENTLEMAN WHO IS MORBIDLY O BESE, IS BEING TREATED FOR SLEEP APNEA WITH USE OF CPAP. HE USES CPAP VERY REGULARLY EVERY NIGHT, EXCEPT WHEN THERE IS ELECTED 60 OUT AGE IN THE CITY. HE USES CPAP FOR ABOUT 7-8 HOURS HOWEVER IN BETWEEN WAKES UP A FEW TIMES TO GO TO THE BATHROOM BECAUSE OF HIS PROSTATE ISSUE. HE IS BEING TREATED FOR HYPOGONADISM WITH DEPO TESTOSTERONE INJECTION Q 4 WEEKS. WEIGHT HAS REMAINED UNCHANGED. HE DENIES DAYTIME SLEEPINESS. 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 Hypogonadism in male Surgical History History of meniscal tear History of shoulder surgery History of umbilical hernia repair Family History Father TIA (transient ischemic attack) Asthma Stroke Diabetes Hypertension Mother Asthma Cancer Dementia Paternal Grandmother Lung cancer Maternal Aunt Cancer Son Substance use disorder Social History Housing: House Alcohol intake: current Alcohol intake frequency: holidays/special occasions only Patient Tobacco Use Status: Never used Tobacco e-Cigarette/Vaping Use: Never Used Second Hand Smoke Exposure: No service: No Current occupational status: disabled Cognitive needs: No Hearing needs: No Vision needs: No Review of Systems Const All systems reviewed & are unremarkable except as noted in HPI and below Reports fatigue (MILD) Eyes Reports no additional complaints ENT Reports no additional complaints Card Denies chest pain, Denies irregular heart rhythm and Denies leg edema Resp Reports no additional complaints GI Reports no additional complaints Reports erectile dysfunction and Reports nocturia Musc Reports back pain (MILD) Skin/Breast Reports system reviewed and no additional complaints, except as documented Neuro Reports no additional complaints Psych Reports anxiety (CONTROLLED WITH MED) Endo Reports fatigue (MILD) Sae/Lymph Reports no additional complaints Physical Exam Vital Signs: Last Vital Signs Pulse 67 05/16/23 09:42 BP 120/72 05/16/23 09:42 Pulse Ox 98 05/16/23 09:42 Oxygen Delivery Method Room Air 05/16/23 09:42 BMI result Body Mass Index 45.0 Const General: healthy appearing (Except for being overweight), comfortable, no acute distress, alert and awake Orientation/consciousness: patient oriented x3 HEENT Head: Yes normal to inspection General nose exam: No nasal polyps present and No nasal discharge present Face and sinus: Yes sinuses nontender Mouth: oropharynx normal Throat: Yes posterior oropharynx normal Eyes General: appearance normal, both eyes and all related structures Neck Neck: Yes normal visual inspection, Yes no lymphadenopathy, Yes trachea midline and Yes no JVD Thyroid: Thyroid normal Chest Chest palpation & inspection: normal inspection of the chest, normal palpation of entire chest wall and no tenderness Resp Effort & Inspection: normal respiratory effort Auscultation: clear to auscultation bilaterally, no crackles and no wheezes Percussion: percussion normal Cardio Palpation: normal PMI Rate: regular rate Rhythm: regular rhythm Heart sounds: no gallops and no murmurs Peripheral pulses: Peripheral pulses 2+ throughout GI Palpation (GI): Soft to palpation, nontender, No hepatosplenomegaly present, no masses and Other GI palpation findings present (Abdomen is obese and protuberant) Auscultation: normal bowel sounds Back/Spine/Pelvis Thoracic/Lumbar Spine: thoracic and lumbar spine normal to inspection Skin General skin exam: no rashes or lesions noted Neuro General: patient oriented x3 and no focal motor deficits Cranial nerves: Yes CN's II-XII intact bilaterally Extrem General: Yes normal to inspection, Yes no clubbing, cyanosis or edema and Yes no calf tenderness Psych Appearance: grossly normal and well kempt Speech and movement: Normal speech and movement present Results Reviewed Results Reviewed: COMPLIANCE REPORT REVIEWED. HE HAS USED 29/30 NIGHTS, 97%. AVERAGE USE PER NIGHT 8 HOURS 6 MINUTE. PRESSURE USED 13-16 CM. THERE IS AIR LEAK MAXIMUM 88.7 L/MINUTE, THIS IS DUE TO SLIPPING OF THE MASK. RESIDUAL AHI ONLY 1.9 Assessment & Plan Assessment & Plan (1) Morbid obesity: Comment: PATIENT IS AWARE OF MORBID OBESITY AND HE IS TRYING TO LOSE WEIGHT SLOWLY ON HIS OWN. He was not able to join the weight management program. Discussed about his diet and calories and using common sense, which he is going to try. Encouraged to start walking more every day Code(s): E66.01 - Morbid (severe) obesity due to excess calories (2) Obstructive sleep apnea (adult) (pediatric): Comment: Patient has established diagnosis of obstructive sleep apnea, Since 2009. Reconfirmed by home-based sleep study in 2020 Patient has been using CPAP / auto PAP mode and pressure setting 6-20 cm. He is very compliant, 100%, and benefiting. Currently using AirFit-20 full face mask of large size, which is very comfortable for him Code(s): G47.33 - Obstructive sleep apnea (adult) (pediatric) Coding Level of Care Code Est Pt Level 3 (24129) Diagnoses Morbid obesity E66.01 Obstructive sleep apnea (adult) (pediatric) G47.33
[2023-05-16 09:42] VITALS: BP 120/72; PULSE 67; O2SAT 98; BMI 45.0
== END 2023-05-16 10:02 | disposition home or self-care (01) ==
PROVIDERS: PCP Internal Medicine; Visit Provider Internal Medicine
DX: E66.01 Morbid (severe) obesity due to excess calories (principal); G47.33 Obstructive sleep apnea (adult) (pediatric)
CPT/HCPCS: 99213

== ENCOUNTER 2023-06-02 08:32 | Outpatient (AMB) | payer OTHER, SELFPAY ==
--- NOTE | 2023-06-02 08:33 | A.OFFVIS_ITS ---
Intake Intake Visit Reasons: 6M PSA/CBC/TESTOSTERONE(set) Intake Note: Patient is Present for Follow Up Labs Urology Medication: Testosterone Antibiotic Allergies: None Blood Thinners:None Pharmacy: [facility] Allergies No Known Allergies Allergy (Verified 05/16/23 09:55) Medication List - Last Reconciled 06/02/23 by Harjit Awan MD cholecalciferol (vitamin D3) 25 mcg PO DAILY [cpap As directed] magnesium oxide 500 mg PO DAILY multivitamin 1 tab PO DAILY syringe with needle (Monoject TB) As directed Qweekly testosterone cypionate (Depo-Testosterone) 80 mg (0.4 mL) subcut QWEEK 4 weeks HPI HPI Comments History of Present Illness Details Adonis CLAIRE is a very pleasant male. He is a patient Dr Fernandez. He is seen for the following urologic conditions - hypogonadism - lower urinary tract symptoms - primari ly de Jun overactive bladder following prostate procedure Telemedicine Evaluation 15 min Consultation [employer] Robyn Video attempted Discussed InterStim since has failed multiple oral medications and Botox At this point he will consider Testosternone in normal 6 month follow-up Continue testosterone Hypogonadism: Testosterone at 500 Continue with 0.4 cc subcu weekly He presents today for further evaluation and followup of his hypogonadism. Initial symptoms include erectile dysfunction Yes decreased libido Yes change in mood/depression Yes in muscle size/strength Yes increased fatigue/malaise Yes The onset of symptoms has been gradual. Associate conditions include obstructive sleep apnea Yes Treatment since 2011 CAD No obesity Yes stress - financial, family, employment No heavy alcohol or illicit drug use No Laboratory results 01/30 , baseline T 199, FSH 4.5, Est 35 Low testosterone with elevated FSH and estrogen consistent with estrogen shunting with appropriate pituitary response 03/01 T 188 Est 16 Free T 41 06/01 T 271, 08/01 T260, 03/02 T , PSA 1.4 - 09/03 T 491, PSA 2.2, 05/04 T 598 P 3.2, 06/04 T 475 PSA 2.9, 06/05 590 3.6 Prior therapy includes 08/01 Testosterone gel with minimal effect. 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 Lower Urinary Tract Symptoms: Detrusor Hyperactivity and impaired contractility Current visit is for further evaluation of, lower urinary tract symptoms, predominate irritative with weak stream Current treatment includes - Previously trialed Flomax with minimal response, oxybutynin with poor response, tolterodine and myrbetriq, doxazosin, bethanechol - 06/04 Botox to bladder - marginal effect Prostate Symptom Score 9/ , Moderate (9-19), Bother 4. Symptoms include 05/02 , weak stream, frequency, and are progressing Investigations - October 2020 cystoscopy open bladder neck from prior TURP Testing at next visit will include bladder scan. 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 Hypogonadism in male Surgical History History of meniscal tear History of shoulder surgery History of umbilical hernia repair Family History Father TIA (transient ischemic attack) Asthma Stroke Diabetes Hypertension Mother Asthma Cancer Dementia Paternal Grandmother Lung cancer Maternal Aunt Cancer Son Substance use disorder Social History Housing: House Alcohol intake: current Alcohol intake frequency: holidays/special occasions only Patient Tobacco Use Status: Never used Tobacco e-Cigarette/Vaping Use: Never Used Second Hand Smoke Exposure: No service: No Current occupational status: disabled Cognitive needs: No Hearing needs: No Vision needs: No Review of Systems Const All systems reviewed & are unremarkable except as noted in HPI and below Reports no additional complaints Resp Reports no additional complaints GI Reports no additional complaints Reports as per HPI Musc Reports no additional complaints Physical Exam Telemedicine evaluation Appropriate responses Regular breathing rate and rhythm HEENT Head: Yes normal to inspection Ears: hearing grossly normal bilaterally Eyes General: appearance normal, both eyes and all related structures Neck Neck: Yes normal visual inspection Chest Chest palpation & inspection: normal inspection of the chest Resp Effort & Inspection: normal respiratory effort and able to speak in complete sentences Assessment & Plan Assessment & Plan (1) Urinary urgency: Code(s): R39.15 - Urgency of urination (2) Hypogonadism in male: Code(s): E29.1 - Testicular hypofunction Plan Discussed InterStim 6 month follow-up hypogonadism Orders: Orders Testosterone, Total 6 Months E29.1 - Testicular hypofunction Prostate Specific Antigen 6 Months E29.1 - Testicular hypofunction Complete Blood Count no Diff 6 Months E29.1 - Testicular hypofunction Medications: Refilled syringe with needle (Monoject TB) As directed Qweekly 50 ea 0RF Testosterone injection E29.1 - Testicular hypofunction testosterone cypionate (Depo-Testosterone) 80 mg (0.4 mL) subcut QWEEK 4 mL 5RF 4 weeks [id number], R36.1 - Hematospermia Patient Instructions: Imaging studies, laboratory and physical exam results were discussed and reviewed in detail. No major barriers to patient understanding were identified. An opportunity to ask questions regarding the treatment plan was provided. All questions were answered. The patient expressed understanding and agreement with the above treatment plan. The patient is aware they should contact our office by phone for worsening of their current condition or the appearance of new urologic symptoms. Compliance is encouraged with any medications and followup testing that is ordered. It is a privilege to participate in the urologic care of your patient. If you have any questions or concerns regarding treatment for the above conditions, or other urologic issues, please do not hesitate to contact me. The office telephone contact is [phone]. This note is constructed using voice recognition software. While every effort has been made to ensure accuracy migrant leader errors may have been included. Yours sincerely, Dr Harjit Awan MD, LISA [facility] - Urology Providers of Expert, Compassionate Care for the Genitourinary System Telehealth Telehealth Location of provider rendering services: practice address Location of patient: address on file Patient Identification confirmed using: Name, : Yes Telehealth method: video Patient verbally consented to treatment: Yes Patient verbally consented to billing insurance company: Yes Patient informed of any privacy concerns related to visit: Yes Coding Level of Care Code Tele Est Pt Level 3 (30151) Diagnoses Urinary urgency R39.15 Hypogonadism in male E29.1
== END 2023-06-02 09:23 | disposition home or self-care (01) ==
PROVIDERS: PCP Internal Medicine; Visit Provider Urology
DX: R39.15 Urgency of urination (principal); E29.1 Testicular hypofunction
CPT/HCPCS: 99213

== ENCOUNTER → 2023-06-02 08:32 | Outpatient (BNVA) | payer OTHER, SELFPAY | PROVIDERS: PCP Internal Medicine; Visit Provider Urology ==

== ENCOUNTER 2023-06-14 18:11 | Emergency (ER) | payer OTHER, SELFPAY ==
--- NOTE | ~2023-06-14 | XR_ITS ---
EXAMINATION: XR WRIST, LEFT CLINICAL INFORMATION: Wrist pain and swelling COMPARISON: Left wrist 08/17/2018 TECHNIQUE: PA, lateral, and oblique views of the left wrist. FINDINGS: There is a rounded amorphous area of calcification present distal to the ulnar styloid which was not present in 2019. Minimal degenerative change present at the ulnar styloid joint. No acute fractures or dislocations. XR/XR wrist LT min 3V IMPRESSION: Soft tissue calcification distal to the ulnar styloid as described above. This is of questionable significance. Please correlate with pain in this region. This could represent chondrocalcinosis in the triangular cartilage but does not have the typical appearance for this. No acute fracture or dislocation.
[2023-06-14 18:30] VITALS: BP 146/77; PULSE 73; RESP 20; TEMP 36.5; O2SAT 98; BMI 46.0
--- NOTE | 2023-06-14 18:32 | ECG_ITS ---
Test Reason : WRIST PAIN Blood Pressure : / mmHG Vent. Rate : 075 BPM Atrial Rate : 078 BPM P-R Int : 166 ms QRS Dur : 096 ms QT Int : 366 ms P-R-T Axes : 007 -14 043 degrees QTc Int : 408 ms Normal sinus rhythm Minimal voltage criteria for LVH, may be normal variant ( R in aVL ) Borderline ECG When compared with ECG of 22-FEB-2016 06:34, No significant change was found Referred By: Generic ED Physician Electronically Signed By:BEKA MACKEY MD
--- NOTE | 2023-06-14 21:00 | ED.EXTPRO ---
HPI - Extremity Problem General Chief complaint: Extremity Problem Stated complaint: wrist pain, hurts to move Time Seen by Provider: 06/14/23 20:59 Source: patient Mode of arrival: ambulatory Limitations: no limitations History of Present Illness HPI Narrative: 62 year old male presents to the ER with wrist pain. PMH: Sleep apnea, obesity, HTN, obstructive sleep apneashoulder dislocation history, SBO, HLD. He states left wrist hurting for 2 days. Denies any falls or injuries. Related Data Home Medications Medication Instructions Recorded Confirmed cholecalciferol (vitamin D3) 25 25 mcg PO DAILY 05/28/20 06/02/23 mcg (1,000 unit) capsule magnesium oxide 500 mg capsule 500 mg PO DAILY 05/28/20 06/02/23 multivitamin 1 tab PO DAILY 05/28/20 06/02/23 Previous Rx's Medication Instructions Recorded cpap #1 ea 01/14/21 syringe with needle 1 mL 28 gauge #50 ea 06/02/23 x 1/2 (Monoject TB) testosterone cypionate 200 mg/mL 80 mg (0.4 mL) subcut QWEEK 4 06/02/23 intramuscular oil weeks #4 mL (Depo-Testosterone) indomethacin 25 mg capsule 25 mg PO BID Joint pain #20 caps 06/14/23 prednisone 20 mg tablet 60 mg (3 x 20 mg) PO DAILY Asthma 06/14/23 5 days #15 tabs Allergies Allergy/AdvReac Type Severity Reaction Status Date / Time No Known Allergies Allergy Verified 05/16/23 09:55 Review of Systems Review of Systems: Review of systems: General: Patient denies any fever chills recent illness or falls Musculoskeletal: Denies back pain or body aches or other injuries HEENT: denies headache, runny nose, ear pain Respiratory: denies shortness of breath, cough Cardiovascular: no chest pain or palpitations : denies dysuria, frequency Abdomen: no nausea vomiting denies abdominal pain Extremities: left wrist pain and swelling Skin: no diaphoresis Yes all other systems are reviewed and are negative PMFSH Past Medical History Medical History Hematospermia Knee pain Hemospermia Dislocation of right shoulder joint GERD (gastroesophageal reflux disease) Plantar fasciitis, bilateral Impaired glucose tolerance Umbilical hernia, incarcerated Chondromalacia, patella Axillary nerve injury Acute meniscal tear of left knee Tubular adenoma of colon Small bowel obstruction Iron deficiency anemia Hypercholesterolemia Urinary retention Osteochondritis dissecans, 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 Hypogonadism in male Surgical History History of meniscal tear History of shoulder surgery History of umbilical hernia repair Family History Family History Father TIA (transient ischemic attack) Asthma Stroke Diabetes Hypertension Mother Asthma Cancer Dementia Paternal Grandmother Lung cancer Maternal Aunt Cancer Son Substance use disorder Social History Social History Housing: House Alcohol intake: current Alcohol intake frequency: holidays/special occasions only Patient Tobacco Use Status: Never used Tobacco e-Cigarette/Vaping Use: Never Used Second Hand Smoke Exposure: No Advance Directives: No Advance Directives Information Provided: No service: No Current occupational status: disabled Cognitive needs: No Hearing needs: No Vision needs: No Physical Exam Vital Signs: Vital Signs: Last Vital Signs Temp 97.7 F 06/14/23 18:30 Pulse 73 06/14/23 18:30 Resp 20 06/14/23 18:30 BP 146/77 H 06/14/23 18:30 Pulse Ox 98 06/14/23 18:30 O2 Del Method Room Air 06/14/23 18:30 BMI result Body Mass Index 46.0 General: Well-appearing well-nourished in no signs of distress HEENT: Normocephalic atraumatic Neck: No signs of JVD, no masses no tenderness or lymphadenopathy Cardiovascular: Regular rate and rhythm Respiratory: Clear to auscultation bilaterally Abdomen: Soft nontender no masses rectal exam performed guiac negative software quality assurance analyst confirmed. Extremities: Normal pedal pulses no signs of edema Skin: Dry warm no rashes Back: No tenderness full ROM Medical Decision Making Medical Decision Making MDM Narrative: [facility] show fracture get the patient to listen Differential Diagnosis Differential Diagnoses: The differential diagnosis associated with the presentation includes Gout strain cellulitis fracture dislocation Independent Interpretation I performed an independent interpretation of an: Plain X-Ray Discharge Plan Discharge Clinical Impression: Acute pain of left shoulder, Acute pain of left wrist Patient Disposition: Home, Self-Care Instructions: Arthralgia (ED), Shoulder Pain (ED), Arm Pain (ED), Shoulder Impingement Syndrome (ED) Additional Instructions: You were seen today for left wrist and left shoulder pain. You should start with conservative treatment. Please call to follow up. If you have any other concerns please return to the ED. Prescriptions: New indomethacin 25 mg capsule 25 mg PO BID Qty: 20 0RF Rx Instructions: administer with food or milk prednisone 20 mg tablet 60 mg PO DAILY 5 Days Qty: 15 0RF No Action cholecalciferol (vitamin D3) 25 mcg (1,000 unit) capsule 25 mcg PO DAILY multivitamin Tablet 1 tab PO DAILY magnesium oxide 500 mg capsule 500 mg PO DAILY (DME) cpap See Rx Instructions .Route .MEDSUPPLY Qty: 1 0RF Rx Instructions: As directed (DME) Monoject TB 1 mL 28 gauge x 1/2 syringe See Rx Instructions .MEDSUPPLY Qty: 50 0RF Rx Instructions: As directed Qweekly testosterone cypionate [Depo-Testosterone] 200 mg/mL oil 80 mg subcut QWEEK 28 Days Qty: 4 5RF
[2023-06-14 22:28] VITALS: BP 147/90; PULSE 73; RESP 20
[2023-06-14] MEDS: Indomethacin 25 MG CAPSULE 50 MG PO (22:36)
== END 2023-06-14 22:38 | disposition home or self-care (01) ==
PROVIDERS: Emergency Provider Student in an Organized Health Care Education/Training Program; PCP Internal Medicine
DX: M25.512 Pain in left shoulder (principal); M25.532 Pain in left wrist; I10 Essential (primary) hypertension; E78.00 Pure hypercholesterolemia, unspecified; K21.9 Gastro-esophageal reflux disease without esophagitis; D50.9 Iron deficiency anemia, unspecified; G47.33 Obstructive sleep apnea (adult) (pediatric); Z99.89 Dependence on other enabling machines and devices; Z79.899 Other long term (current) drug therapy
CPT/HCPCS: 73110; 93005; 99283; 99284

== ENCOUNTER 2023-11-24 07:28 | Outpatient (REF) | payer OTHER, SELFPAY ==
[2023-11-24 08:03] LABS: Hemoglobin 15.8 g/dl (14.0-18.0); Mean Corpuscular HGB Conc 34.3 g/dl (31.0-36.0); Mean Corpuscular Hemoglobin 26.6 pg (27.0-33.0); Mean Corpuscular Volume 77.4 fL (80.0-98.0); Mean Platelet Volume 9.7 fL (9.4-12.4); Platelet Count 264 X10*3/uL (160-400); Red Blood Count 5.94 X10*6/uL (4.60-5.80); Red Cell Distribution Width 15.8 % (11.0-16.0); White Blood Count 5.6 X10*3/uL (4.8-10.8)
[2023-11-24 08:34] LABS: Prostate Specific Antigen 2.93 ng/mL (<0.05-4.0)
[2023-12-02 14:49] LABS: Testosterone, Total 488 ng/dL (250-1100)
== END 2023-11-24 07:29 | disposition home or self-care (01) ==
LOC: HO.LAB 07:28
PROVIDERS: PCP Internal Medicine; Visit Provider Urology
DX: Z12.5 Encounter for screening for malignant neoplasm of prostate (principal); E29.1 Testicular hypofunction
CPT/HCPCS: 36415; 84153; 84403; 85027

== ENCOUNTER 2023-11-28 09:27 | Outpatient (AMB) | payer OTHER, SELFPAY ==
[2023-11-28 09:37] VITALS: BP 120/70; PULSE 73; O2SAT 97; BMI 44.5
--- NOTE | 2023-11-28 09:37 | A.OFFVIS_ITS ---
Intake Vital Signs 11/28/23 09:37 Height 5 ft 4 in Weight 259 lb 0.69 oz BMI 44.5 BP 120/70 Blood Pressure Location Lt brachial Position Sitting Pulse 73 Pulse Source Pulse Oximeter Pulse Oximetry (%) 97 Oxygen Delivery Method Room Air Intake Visit Reasons: Obstructive sleep apnea Intake Note: pt is here for follow up and using cpap and is going okay with machine,no problems Canceling Machine Operator Required: No Allergies No Known Allergies Allergy (Verified 11/28/23 09:51) Medication List - Last Reconciled 11/28/23 by Rafael Cramer MD cholecalciferol (vitamin D3) 25 mcg PO DAILY [cpap As directed] multivitamin 1 tab PO DAILY syringe with needle (Monoject TB) As directed Qweekly testosterone cypionate (Depo-Testosterone) 80 mg (0.4 mL) subcut QWEEK 4 weeks Do you need a note to return to daycare/school/sports/work: No HPI Obstructive sleep apnea HPI Details 63 years old gentleman with morbid obesi ty and obstructive sleep apnea, Comes after 6 months for follow-up. He is a regular user of CPAP, and claims that he sleeps well except for waking up a few times during the night, and then goes back to sleep. No issue with the mask or CPAP machine. Weight is down by a few lb but overall it remains almost the same. He denies daytime sleepiness. He is a regular [employer] . 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 Hypogonadism in male Surgical History History of meniscal tear History of shoulder surgery History of umbilical hernia repair Family History Father TIA (transient ischemic attack) Asthma Stroke Diabetes Hypertension Mother Asthma Cancer Dementia Paternal Grandmother Lung cancer Maternal Aunt Cancer Son Substance use disorder Social History Housing: House Alcohol intake: current Alcohol intake frequency: holidays/special occasions only Patient Tobacco Use Status: Never used Tobacco e-Cigarette/Vaping Use: Never Used Second Hand Smoke Exposure: No service: No Current occupational status: disabled Cognitive needs: No Hearing needs: No Vision needs: No Review of Systems Const All systems reviewed & are unremarkable except as noted in HPI and below Reports fatigue (MILD) Eyes Reports no additional complaints ENT Reports no additional complaints Card Denies chest pain, Denies irregular heart rhythm and Denies leg edema Resp Reports no additional complaints GI Reports no additional complaints Reports erectile dysfunction and Reports nocturia Musc Reports back pain (MILD) Skin/Breast Reports system reviewed and no additional complaints, except as documented Neuro Reports no additional complaints Psych Reports anxiety (CONTROLLED WITH MED) Endo Reports fatigue (MILD) Sae/Lymph Reports no additional complaints Physical Exam Const General: healthy appearing (Except for being overweight), comfortable, no acute distress, alert and awake Orientation/consciousness: patient oriented x3 HEENT Head: Yes normal to inspection General nose exam: No nasal polyps present and No nasal discharge present Face and sinus: Yes sinuses nontender Mouth: oropharynx normal Throat: Yes posterior oropharynx normal Eyes General: appearance normal, both eyes and all related structures Neck Neck: Yes normal visual inspection, Yes no lymphadenopathy, Yes trachea midline and Yes no JVD Thyroid: Thyroid normal Chest Chest palpation & inspection: normal inspection of the chest, normal palpation of entire chest wall and no tenderness Resp Effort & Inspection: normal respiratory effort Auscultation: clear to auscultation bilaterally, no crackles and no wheezes Percussion: percussion normal Cardio Palpation: normal PMI Rate: regular rate Rhythm: regular rhythm Heart sounds: no gallops and no murmurs Peripheral pulses: Peripheral pulses 2+ throughout GI Palpation (GI): Soft to palpation, nontender, No hepatosplenomegaly present, no masses and Other GI palpation findings present (Abdomen is obese and protuberant) Auscultation: normal bowel sounds Back/Spine/Pelvis Thoracic/Lumbar Spine: thoracic and lumbar spine normal to inspection Skin General skin exam: no rashes or lesions noted Neuro General: patient oriented x3 and no focal motor deficits Cranial nerves: Yes CN's II-XII intact bilaterally Extrem General: Yes normal to inspection, Yes no clubbing, cyanosis or edema and Yes no calf tenderness Psych Appearance: grossly normal and well kempt Speech and movement: Normal speech and movement present Results Reviewed Results Reviewed: Compliance report is from 05/27/23-06/25/23 which shows good, 100% compliance Assessment & Plan Assessment & Plan (1) Morbid obesity: Comment: PATIENT IS AWARE OF MORBID OBESITY AND HE IS TRYING TO LOSE WEIGHT SLOWLY ON HIS OWN, and has lost 9 lb in the last 6 months. He was not able to join the weight management program. Discussed about his diet and calories and using common sense, which he is going to try. Encouraged to start walking more every day Code(s): E66.01 - Morbid (severe) obesity due to excess calories Plan: Once again discussed with him about losing weight. He is watching his diet carefully and is also advised to start walking daily (2) Obstructive sleep apnea (adult) (pediatric): Comment: Patient has established diagnosis of obstructive sleep apnea, Since 2009. Reconfirmed by home-based sleep study in 2020 Patient has been using CPAP / auto PAP mode and pressure setting 6-20 cm. He is very compliant, 100%, and benefiting. Currently using AirFit-20 full face mask of large size, which is very comfortable for him Code(s): G47.33 - Obstructive sleep apnea (adult) (pediatric) Plan: Advised to continue using CPAP regularly every day . Coding Level of Care Code Est Pt Level 3 (16329) Diagnoses Morbid obesity E66.01 Obstructive sleep apnea (adult) (pediatric) G47.33
== END 2023-11-28 09:54 | disposition home or self-care (01) ==
PROVIDERS: PCP Internal Medicine; Visit Provider Internal Medicine
DX: E66.01 Morbid (severe) obesity due to excess calories (principal); G47.33 Obstructive sleep apnea (adult) (pediatric)
CPT/HCPCS: 99213

== ENCOUNTER → 2023-11-28 09:27 | Outpatient (BNVA) | payer OTHER, SELFPAY | PROVIDERS: PCP Internal Medicine; Visit Provider Internal Medicine | DX: E66.01 Morbid (severe) obesity due to excess calories (principal); G47.33 Obstructive sleep apnea (adult) (pediatric); Z68.41 Body mass index [BMI] 40.0-44.9, adult | CPT/HCPCS: 99212 ==

== ENCOUNTER 2024-02-09 15:16 | Outpatient (AMB) | payer OTHER, SELFPAY ==
--- NOTE | 2024-02-09 15:24 | A.OFFVIS_ITS ---
Intake Visit Reasons: 6M PSA/CBC/Testo(set)confirmed Intake Note: Patient is Present for Follow Up labs Urology Medication: Testosterone Antibiotic Allergies:None Blood Thinners:None PVR: 104 Patient states that he has been having some urinary issues, patient states that he feels like he does not fully empty his bladder. Marble Machine Operator Required: No Allergies No Known Allergies Allergy (Verified 02/09/24 15:27) Medication List - Last Reconciled 02/09/24 by Harjit Awan MD cholecalciferol (vitamin D3) 25 mcg PO DAILY [cpap As directed] multivitamin 1 tab PO DAILY syringe with needle (Monoject TB) As directed Qweekly testosterone cypionate (Depo-Testosterone) 80 mg (0.4 mL) subcut QWEEK 4 weeks HPI Comments Details: Adonis CLAIRE is a very pleasant male. He is a patient Dr Fernandez. He is seen for the following urologic conditions - hypogonadism - lower urinary tract symptoms - primarily de Jun overactive bladder following prostate procedure Not interested in InterStim 100 cc in bladder Failed multiple prior medications Discussed potential benefit from weight loss. Acknowledged this would not be an easy thing to do. Testosternone labs remain normal. T4 88, P 2.9 Hypogonadism: Testosterone at 500 Continue with 0.4 cc subcu weekly He presents today for further evaluation and followup of his hypogonadism. Initial symptoms include erectile dysfunction Yes decreased libido Yes change in mood/depression Yes in muscle size/strength Yes increased fatigue/malaise Yes The onset of symptoms has been gradual. Associate conditions include obstructive sleep apnea Yes Treatment since 2011 CAD No obesity Yes stress - financial, family, employment No heavy alcohol or illicit drug use No Laboratory results 01/30 , baseline T 199, FSH 4.5, Est 35 Low testosterone with elevated FSH and estrogen consistent with estrogen shunting with appropriate pituitary response 03/01 T 188 Est 16 Free T 41 06/01 T 271, 08/01 T260, 03/02 T , PSA 1.4 - 09/03 T 491, PSA 2.2, 05/04 T 598 P 3.2, 06/04 T 475 PSA 2.9, 06/05 590 3.6, 12/05 T 488 Prior therapy includes 08/01 Testosterone gel with minimal effect. 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 Lower Urinary Tract Symptoms: Detrusor Hyperactivity and impaired contractility Current visit is for further evaluation of, lower urinary tract symptoms, predominate irritative with weak stream Current treatment includes - Previously trialed Flomax with minimal response, oxybutynin with poor response, tolterodine and myrbetriq, doxazosin, bethanechol - 06/04 Botox to bladder - marginal effect Prostate Symptom Score 9/19 , Moderate (9-19), Bother 4. Symptoms include 9/ , weak stream, frequency, and are progressing Investigations - October 2020 cystoscopy open bladder neck from prior TURP Testing at next visit will include bladder scan. 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 Hypogonadism in male Surgical History History of meniscal tear History of shoulder surgery History of umbilical hernia repair Family History Father TIA (transient ischemic attack) Asthma Stroke Diabetes Hypertension Mother Asthma Cancer Dementia Paternal Grandmother Lung cancer Maternal Aunt Cancer Son Substance use disorder Social History Housing: House Alcohol intake: current Alcohol intake frequency: holidays/special occasions only Patient Tobacco Use Status: Never used Tobacco e-Cigarette/Vaping Use: Never Used Second Hand Smoke Exposure: No service: No Current occupational status: disabled Cognitive needs: No Hearing needs: No Vision needs: No Review of Systems Const Denies chills and Denies fever(s) Card Reports no additional complaints and Denies syncope Resp Denies cough GI Denies abdominal pain and Denies heartburn Reports as per HPI and Denies change in libido Neuro Denies syncope Psych Denies change in libido Endo Denies change in libido Physical Exam Const General: cooperative, healthy appearing, comfortable and no acute distress Orientation/consciousness: patient oriented x3 HEENT Face and sinus: Yes normal facial exam Mouth: moist mucous membranes Neck Neck: Yes normal visual inspection, Yes full ROM and Yes trachea midline Chest Chest palpation & inspection: normal inspection of the chest Resp Effort & Inspection: normal respiratory effort, able to speak in complete sent ences and no respiratory distress GI Inspection: Yes normal to inspection Back/Spine/Pelvis Cervical Spine: normal cervical lordosis Thoracic/Lumbar Spine: thoracic and lumbar spine normal to inspection Skin General skin exam: no rashes or lesions noted Neuro General: patient oriented x3, gait normal, tone normal and moves all extremities Extrem General: Yes normal to inspection and Yes capillary refill normal Office Procedures Post Void Residual Post Residual Void Post Void Residual (PVR): 104 [id number] Void Residual by ultrasound Assessment & Plan Assessment & Plan (1) Incomplete emptying of bladder due to benign prostatic hyperplasia: Code(s): N40.1 - Benign prostatic hyperplasia with lower urinary tract symptoms; R33.9 - Retention of urine, unspecified Category: Medical (2) Urinary urgency: Code(s): R39.15 - Urgency of urination Category: Medical (3) Overactive bladder: Code(s): N32.81 - Overactive bladder Category: Medical (4) Hypogonadism in male: Code(s): E29.1 - Testicular hypofunction Category: Medical Plan Six-month follow-up lab work Orders: Orders AMB Post Void Residual by ultrasound Today N40.1 - Benign prostatic hyperplasia with lower urinary tract symptoms, R33.9 - Retention of urine, unspecified Prostate Specific Antigen 6 Months E29.1 - Testicular hypofunction Testosterone, Total 6 Months E29.1 - Testicular hypofunction Complete Blood Count no Diff 6 Months E29.1 - Testicular hypofunction Patient Instructions: Imaging studies, laboratory and physical exam results were discussed and reviewed in detail. No major barriers to patient understanding were identified. An opportunity to ask questions regarding the treatment plan was provided. All questions were answered. The patient expressed understanding and agreement with the above treatment plan. The patient is aware they should contact our office by phone for worsening of their current condition or the appearance of new urologic symptoms. Compliance is encouraged with any medications and followup testing that is ordered. It is a privilege to participate in the urologic care of your patient. If you have any questions or concerns regarding treatment for the above conditions, or other urologic issues, please do not hesitate to contact me. The office telephone contact is [phone]. This note is constructed using voice recognition software. While every effort has been made to ensure accuracy wire coater errors may have been included. Yours sincerely, Dr Harjit Awan MD, [facility] - Urology Providers of Expert, Compassionate Care for the Genitourinary System Coding Level of Care Code Est Pt Level 3 (70664) Diagnoses Incomplete emptying of bladder due to benign prostatic hyperplasia N40.1; R33.9 Urinary urgency R39.15 Overactive bladder N32.81 Hypogonadism in male E29.1 CPT Codes Post Residual Void - PVR CPT Code: 62892-[place] Void Residual by ultrasound ([id number])
== END 2024-02-09 16:06 | disposition home or self-care (01) ==
PROVIDERS: PCP Internal Medicine; Visit Provider Urology
DX: N40.1 Benign prostatic hyperplasia with lower urinary tract symptoms (principal); R33.9 Retention of urine, unspecified; R39.15 Urgency of urination; N32.81 Overactive bladder; E29.1 Testicular hypofunction
CPT/HCPCS: 99213

== ENCOUNTER → 2024-02-09 15:16 | Outpatient (BNVA) | payer OTHER, SELFPAY | PROVIDERS: PCP Internal Medicine; Visit Provider Urology | DX: N40.1 Benign prostatic hyperplasia with lower urinary tract symptoms (principal); N32.81 Overactive bladder; R33.9 Retention of urine, unspecified; R39.15 Urgency of urination; E29.1 Testicular hypofunction | CPT/HCPCS: 51798; 99212 ==

== ENCOUNTER 2024-02-27 11:40 | Outpatient (AMB) | payer OTHER, SELFPAY ==
[2024-02-27 11:43] VITALS: BP 140/90; PULSE 78; O2SAT 97; BMI 43.4
--- NOTE | 2024-02-27 11:43 | A.OFFPC_ITS ---
Vital Signs 02/27/24 11:43 02/27/24 12:08 Height 5 ft 4 in Weight 253 lb 0.6 oz BMI 43.4 BP 140/90 H 140/80 H Blood Pressure Location Lt brachial Lt brachial Position Sitting Sitting Pulse 78 Pulse Source Pulse Oximeter Pulse Oximetry (%) 97 Oxygen Delivery Method Room Air Intake Visit Reasons: f/u Benzol Still Operator Required: No Allergies No Known Allergies Allergy (Verified 02/27/24 11:43) Medication List - Last Reconciled 02/27/24 by Marybel Fernandez MD cholecalciferol (vitamin D3) 25 mcg PO DAILY [cpap As directed] multivitamin 1 tab PO DAILY syringe with needle (Monoject TB) As directed Qweekly testosterone cypionate (Depo-Testosterone) 80 mg (0.4 mL) subcut QWEEK 4 weeks Tobacco use date assessed: 02/27/24 Fall risk assessment: No Falls in past year Last assessed Fall Risk: 02/27/24 Dental Screening Dental Screen Date: 02/27/24 Did you have a dental visit in the last 12 months?: Yes Did you have a dental problem in the last 6 months where you did not have access to dental care?: No Was dental information given to patient?: Patient has dentist HPI f/u HPI Details 63-year-old morbidly obese male with JANETTE D impaired glucose tolerance obstructive sleep apnea hypercholesterolemia urinary retention last seen in November 2021. Patient's colonoscopy was last done in September 2022. Patient follows up with urology overactive bladder following prostate procedure declined InterStim. Has had Flomax oxybutynin tolterodine Myrbetriq doxazosin bethanechol. May 2022 Botox bladder marginal effect has had cystoscopy and TURP patient is basically just monitored. Patient also follows up with Pulmonary November 2023 for the obstructive sleep apnea compliant with CPAP. June had an ER visit for left shoulder pain treated conservatively. 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 Hypogonadism in male Surgical History History of meniscal tear History of shoulder surgery History of umbilical hernia repair Family History Father TIA (transient ischemic attack) Asthma Stroke Diabetes Hypertension Mother Asthma Cancer Dementia Paternal Grandmother Lung cancer Maternal Aunt Cancer Son Substance use disorder Social History Housing: House Alcohol intake: current Alcohol intake frequency: holidays/special occasions only Patient Tobacco Use Status: Never used Tobacco e-Cigarette/Vaping Use: Never Used Second Hand Smoke Exposure: No service: No Current occupational status: disabled Cognitive needs: No Hearing needs: No Vision needs: No Questionnaire Thrive Questionnaire Date Thrive assessed: 10/14/20 AUDIT C Alcohol Use Questionnaire (AUDIT-C) 1. How often do you have a drink containing alcohol?: Monthly or less 2. How many drinks containing alcohol do you have on a typical day when you are drinking?: 1 or 2 3. How often do you have six or more drinks on one occasion?: Never Total Score: 1 JOSE ALEJANDRO-7 AMB Questionnaire JOSE ALEJANDRO-7 Date JOSE ALEJANDRO - 7 assessed: 02/27/24 Source: Developed by Drs. Caesar Gonzalez, Lizzy Love, Gus Espino and colleagues, with an educational klaudia from [employer]. Physical exam (Primary Care) Vital Signs: Last Vital Signs Pulse 78 02/27/24 11:43 BP 140/80 H 02/27/24 12:08 Pulse Ox 97 02/27/24 11:43 Oxygen Delivery Method Room Air 02/27/24 11:43 BMI result Body Mass Index 43.4 Tobacco/Smoking Status: Tobacco use Status Tobacco use date assessed 02/27/24 02/27/24 11:48 Patient Tobacco Use Status Never used Tobacco 02/27/24 11:48 e-Cigarette/Vaping Use Never Used 02/27/24 11:48 Thrive Assessment: Date of Thrive Assessment Date Thrive assessed 10/14/20 02/27/24 11:48 Const General: alert; No acute distress Eyes Conjunctivae: conjunctivae normal Resp Auscultation: clear to auscultation bilaterally Cardio Rate: regular rate Rhythm: regular rhythm GI Inspection: Yes normal to inspection Extrem General: Yes normal to inspection and No edema Assessment and Plan Assessment & Plan (1) Obstructive sleep apnea: Comment: CPAP Code(s): G47.33 - Obstructive sleep apnea (adult) (pediatric) Plan: Continue to use the CPAP more than 4 hours a night and benefits from this. Patient follows up with Pulmonary (2) Hypercholesterolemia: Code(s): E78.00 - Pure hypercholesterolemia, unspecified Plan: Avoid fried foods, chicken skin, eggs, butter margarine, pastries and meat. Be it pork or beef they have a lot of cholesterol LDL goal of less than 130 and triglyceride of less than 150 (3) Impaired glucose tolerance: Code(s): R73.02 - Impaired glucose tolerance (oral) Plan: Decrease the amount of carbohydrate intake, pasta, bread, rice and potatoes are all sugar and that is aside from all the sweet stuff, remember that fruits are good but they are Sweet also. (4) GERD (gastroesophageal reflux disease): Code(s): K21.9 - Gastro-esophageal reflux disease without esophagitis Qualifiers: Esophagitis presence: without esophagitis Qualified Code(s): K21.9 - Gastro-esophageal reflux disease without esophagitis Plan: Avoid the foods that causes that usually spicy foods, tomato products, juices, coffee, soda and foods that your sensitive to. After eating do not lie down, allow 3-4 hours before in lie down. And keep the head of bed above 30 degrees to avoid the acid from going up. (5) Overactive bladder: Code(s): N32.81 - Overactive bladder Plan: Patient follows up with urology and continuing to monitor (6) Morbid obesity: Comment: PATIENT IS AWARE OF MORBID OBESITY AND HE IS TRYING TO LOSE WEIGHT SLOWLY ON HIS OWN, and has lost 9 lb in the last 6 months. He was not able to join the weight management program. Discussed about his diet and calories and using common sense, which he is going to try. Encouraged to start walking more every day Code(s): E66.01 - Morbid (severe) obesity due to excess calories Plan: Diet and exercise Orders: Orders Complete Blood Count Auto Diff Today E78.00 - Pure hypercholesterolemia, unspecified Free T4 (Free Thyroxine) Today E78.00 - Pure hypercholesterolemia, unspecified Thyroid Stimulating Hormone Today E78.00 - Pure hypercholesterolemia, unspecified Vitamin B12 and Folate Today E78.00 - Pure hypercholesterolemia, unspecified Prostate Specific Antigen Scr Today E78.00 - Pure hypercholesterolemia, unspecified Comprehensive Met. Panel Today E78.00 - Pure hypercholesterolemia, unspecified Lipid Panel Today E78.00 - Pure hypercholesterolemia, unspecified Hemoglobin A1c Today E78.00 - Pure hypercholesterolemia, unspecified Medications: New famotidine 20 mg PO BID 60 tabs 1RF K21.9 - Gastro-esophageal reflux disease without esophagitis Coding Level of Care Code Est Pt Level 4 (61568) Diagnoses Obstructive sleep apnea G47.33 Hypercholesterolemia E78.00 Impaired glucose tolerance R73.02 Gastroesophageal reflux disease without esophagitis K21.9 Esophagitis presence: without esophagitis Overactive bladder N32.81 Morbid obesity E66.01
[2024-02-27 12:08] VITALS: BP 140/80
== END 2024-02-27 12:19 | disposition home or self-care (01) ==
PROVIDERS: PCP Internal Medicine; Visit Provider Internal Medicine
DX: G47.33 Obstructive sleep apnea (adult) (pediatric) (principal); E66.01 Morbid (severe) obesity due to excess calories; Z68.41 Body mass index [BMI] 40.0-44.9, adult; E78.00 Pure hypercholesterolemia, unspecified; R73.02 Impaired glucose tolerance (oral); N32.81 Overactive bladder; K21.9 Gastro-esophageal reflux disease without esophagitis
CPT/HCPCS: 99214

== ENCOUNTER 2024-02-27 12:25 | Outpatient (REF) | payer OTHER, SELFPAY ==
[2024-02-27 12:37] LABS: MANUAL DIFF FLAG NO
[2024-02-27 13:55] LABS: Basophils Percent Auto 0.6 % (0-2); Eosinophils Absolute Auto 0.1 X10*3/uL (0.0-0.4); Eosinophils Percent Auto 1.5 % (0-4); Hematocrit 45.1 % (42.0-52.0); Hemoglobin 15.9 g/dl (14.0-18.0); Imm Gran Abs Auto 0.01 X10*3/uL (0.00-0.03); Imm Gran Pct Auto 0.2 % (0.0-0.4); Lymphocytes Absolute Auto 1.1 X10*3/uL (1.2-4.9); Lymphocytes Percent Auto 22.8 % (20-40); Mean Corpuscular HGB Conc 35.3 g/dl (31.0-36.0); Mean Corpuscular Hemoglobin 28.9 pg (27.0-33.0); Mean Corpuscular Volume 81.9 fL (80.0-98.0); Mean Platelet Volume 10.1 fL (9.4-12.4); Monocytes Absolute Auto 0.6 X10*3/uL (0.1-1.2); Monocytes Percent Auto 12.8 % (2-11); Neutrophils Percent Auto 62.1 % (45-73); Platelet Count 288 X10*3/uL (160-400); Red Blood Count 5.51 X10*6/uL (4.60-5.80); Red Cell Distribution Width 14.6 % (11.0-16.0); White Blood Count 4.8 X10*3/uL (4.8-10.8)
[2024-02-27 14:32] LABS: Estimated Average Glucose 103 mg/dL; Hemoglobin A1c % 5.2 % (<6.0)
[2024-02-27 14:35] LABS: Alanine Aminotransferase 31 U/L (0-40); Albumin Level 4.5 g/dL (3.5-5.0); Alkaline Phosphatase 68 U/L (39-117); Anion Gap 16 (12-20); Aspartate Amino Transferase 38 U/L (5-37); Bilirubin Total 1.1 mg/dL (0.0-1.0); Blood Urea Nitrogen 7 mg/dL (9-16); Calcium 9.7 mg/dL (8.4-10.2); Carbon Dioxide 29 mmol/L (22-29); Chloride 103 mmol/L (96-108); Cholesterol 169 mg/dL (<200); Estimated Glomerular Filt Rate > 60; Glucose Random 84 mg/dL (60-115); HDL Cholesterol 48 mg/dL (>40); LDL Cholesterol Calculated 107 mg/dL (<100); Potassium 3.7 mmol/L (3.3-5.1); Sodium 144 mmol/L (135-145); Total Protein 7.3 g/dL (6.5-8.0); Triglycerides 70 mg/dL (<150)
[2024-02-27 14:58] LABS: Free T4 (Free Thyroxine) 0.94 ng/dL (0.71-1.85)
[2024-02-27 14:59] LABS: Folate 14.8 ng/mL (> or = 4.0); Prostate Specific Antigen Scr 3.65 ng/mL (<0.05-4.0); Vitamin B12 938 pg/mL (200-900)
== END 2024-02-27 12:26 | disposition home or self-care (01) ==
LOC: HO.LAB 12:25
PROVIDERS: PCP Internal Medicine; Visit Provider Internal Medicine
DX: E78.00 Pure hypercholesterolemia, unspecified (principal); Z12.5 Encounter for screening for malignant neoplasm of prostate
CPT/HCPCS: 36415; 80053; 80061; 82607; 82746; 83036; 84153; 84439; 84443; 85025

== ENCOUNTER 2024-05-28 09:34 | Outpatient (AMB) | payer OTHER, SELFPAY ==
--- NOTE | 2024-05-28 09:40 | MHC.OFFVIS ---
Vital Signs 05/28/24 09:41 Height 5 ft 4 in Weight 253 lb 8.505 oz BMI 43.5 BP 130/84 Blood Pressure Location Lt brachial Position Sitting Pulse 85 Pulse Source Pulse Oximeter Pulse Oximetry (%) 95 Oxygen Delivery Method Room Air Intake Visit Reasons: Obstructive sleep apnea Intake Note: pt is here for follow up and states he is doing alright, wakes up for frequent urination. Color Receiver Required: No Allergies No Known Allergies Allergy (Verified 05/28/24 09:58) Medication List - Last Reconciled 05/28/24 by Rafael Cramer MD cholecalciferol (vitamin D3) 25 mcg PO DAILY [cpap As directed] famotidine 20 mg PO BID multivitamin 1 tab PO DAILY syringe with needle (Monoject TB) As directed Qweekly testosterone cypionate (Depo-Testosterone) 80 mg (0.4 mL) subcut QWEEK 4 weeks Do you need a note to return to daycare/school/sports/work: No HPI HPI Obstructive sleep apnea: Details: Adonis is 63 years old gentleman, retired, remains morbidly obese, and comes for follow-up for use of CPAP. He uses his CPAP with fullface mask every night,. Wakes up 2-3 times to go to the bathroom but then puts the CPAP on, overall he is using the CPAP for about 7 hours every night. Wakes up refreshed and denies any daytime sleepiness. Because of his problem with knees he is not able to walk much, and so not able to lose weight. He is also on testosterone therapy, which may be contributing to his obesity. 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 Hypogonadism in male Surgical History History of meniscal tear History of shoulder surgery History of umbilical hernia repair Family History Father TIA (transient ischemic attack) Asthma Stroke Diabetes Hypertension Mother Asthma Cancer Dementia Paternal Grandmother Lung cancer Maternal Aunt Cancer Son Substance use disorder Social History Housing: House Alcohol intake: current Alcohol intake frequency: holidays/special occasions only Patient Tobacco Use Status: Never used Tobacco e-Cigarette/Vaping Use: Never Used Second Hand Smoke Exposure: No service: No Current occupational status: disabled Cognitive needs: No Hearing needs: No Vision needs: No Review of Systems Const All systems reviewed & are unremarkable except as noted in HPI and below Reports fatigue (MILD) Eyes Reports no additional complaints ENT Reports no additional complaints Card Denies chest pain, Denies irregular heart rhythm and Denies leg edema Resp Reports no additional complaints GI Reports no additional complaints Reports erectile dysfunction and Reports nocturia Musc Reports back pain (MILD) Skin/Breast Reports system reviewed and no additional complaints, except as documented Neuro Reports no additional complaints Psych Reports anxiety (CONTROLLED WITH MED) Endo Reports fatigue (MILD) Sae/Lymph Reports no additional complaints Physical Exam Vital Signs: Last Vital Signs Pulse 85 05/28/24 09:41 BP 130/84 05/28/24 09:41 Pulse Ox 95 05/28/24 09:41 Oxygen Delivery Method Room Air 05/28/24 09:41 BMI result Body Mass Index 43.5 Const General: healthy appearing (Except for being overweight), comfortable, no acute distress, alert and awake Orientation/consciousness: patient oriented x3 HEENT Head: Yes normal to inspection General nose exam: No nasal polyps present and No nasal discharge present Face and sinus: Yes sinuses nontender Mouth: oropharynx normal Throat: Yes posterior oropharynx normal Eyes General: appearance normal, both eyes and all related structures Neck Neck: Yes normal visual inspection, Yes no lymphadenopathy, Yes trachea midline and Yes no JVD Thyroid: Thyroid normal Chest Chest palpation & inspection: normal inspection of the chest, normal palpation of entire chest wall and no tenderness Resp Effort & Inspection: normal respiratory effort Auscultation: clear to auscultation bilaterally, no crackles and no wheezes Percussion: percussion normal Cardio Palpation: normal PMI Rate: regular rate Rhythm: regular rhythm Heart sounds: no gallops and no murmurs Peripheral pulses: Peripheral pulses 2+ throughout GI Palpation (GI): Soft to palpation, nontender, No hepatosplenomegaly present, no masses and Other GI palpation findings present (Abdomen is obese and protuberant) Auscultation: normal bowel sounds Back/Spine/Pelvis Thoracic/Lumbar Spine: thoracic and lumbar spine normal to inspection Skin General skin exam: no rashes or lesions noted Neuro General: patient oriented x3 and no focal motor deficits Cranial nerves: Yes CN's II-XII intact bilaterally Extrem General: Yes normal to inspection, Yes no clubbing, cyanosis or edema and Yes no calf tenderness Psych Appearance: grossly normal and well kempt Speech and movement: Normal speech and movement present Results Reviewed Results Reviewed: Compliance report for the last 30 nights is reviewed. He has used 30/30 nights, 100%. Average use it per night 7 hours 56 minute. Pressure used mostly 16-17 cm. There is only mild air leak. Residual AHI 1.4 Assessment & Plan Assessment & Plan (1) Morbid obesity: Comment: PATIENT IS AWARE OF MORBID OBESITY AND HE IS TRYING TO LOSE WEIGHT SLOWLY ON HIS OWN, since his last visit 6 months ago it is at a stands still. He was not able to join the weight management program. He is on testosterone therapy for hypogonadism, and this may be contributing to some extent to his obesity. Code(s): E66.01 - Morbid (severe) obesity due to excess calories Category: Medical Plan: Discussed about his diet and calories and using common sense, which he is going to try. Encouraged to start walking more every day (2) Obstructive sleep apnea (adult) (pediatric): Comment: Patient has established diagnosis of obstructive sleep apnea, Since 2009. Reconfirmed by home-based sleep study in 2020 Patient has been using CPAP / auto PAP mode and pressure setting 6-20 cm. He is very compliant, 100%, and benefiting. Currently using AirFit-20 full face mask of large size, which is very comfortable for him Code(s): G47.33 - Obstructive sleep apnea (adult) (pediatric) Category: Medical Plan: Commended for good compliance and encouraged to keep on using CPAP every night. Coding Level of Care Code Est Pt Level 3 (26897) Diagnoses Morbid obesity E66.01 Obstructive sleep apnea (adult) (pediatric) G47.33
[2024-05-28 09:41] VITALS: BP 130/84; PULSE 85; O2SAT 95; BMI 43.5
== END 2024-05-28 09:58 | disposition home or self-care (01) ==
PROVIDERS: PCP Internal Medicine; Visit Provider Internal Medicine
DX: E66.01 Morbid (severe) obesity due to excess calories (principal); G47.33 Obstructive sleep apnea (adult) (pediatric)
CPT/HCPCS: 99213

== ENCOUNTER → 2024-05-28 09:34 | Outpatient (BNVA) | payer OTHER, SELFPAY | PROVIDERS: PCP Internal Medicine; Visit Provider Internal Medicine | DX: E66.01 Morbid (severe) obesity due to excess calories (principal); G47.33 Obstructive sleep apnea (adult) (pediatric); Z68.41 Body mass index [BMI] 40.0-44.9, adult; Z99.89 Dependence on other enabling machines and devices | CPT/HCPCS: 99212 ==

== ENCOUNTER 2024-07-08 09:07 | Outpatient (AMB) | payer OTHER, SELFPAY ==
--- NOTE | 2024-07-08 09:10 | AM.OFFWIN_ITS ---
Intake Vital Signs 07/08/24 09:11 Height 5 ft 4 in Weight 251 lb BMI 43.1 BP 118/80 Blood Pressure Location Rt brachial Position Sitting Pulse 85 Pulse Source Pulse Oximeter Temp 98.2 F Temp Source Oral Pulse Oximetry (%) 98 Oxygen Delivery Method Room Air Intake Visit Reasons: EP LT side pain/unable to eat 4 days Intake Note: Patient here for for loss of appetite, stomach feels funny and states he is unable to hold any food down and has been having left side pain that has been present for about 4 days. He states he has been vomiting, has only had 1 BM since this started. Patient Tobacco Use Status: Never used Tobacco Allergies No Known Allergies Allergy (Verified 07/08/24 09:13) Do you need a note to return to daycare/school/sports/work: No HPI HPI Comments History of Present Illness Details This is a 63-year-old male with a past medical history of obstructive sleep apnea, gastroesophageal reflux disease and low testosterone presenting for evaluation of myalgias, left-sided abdominal pain, chest pain and rigors that he has had for the past 4-5 days. Patient states that his symptoms seem to be worse at night. Patient states the chest pain is sharp and will last 15-20 minutes in his last chest pain was ?maybe at the end of last week?. Patient s tates that he went to bed night and had rigors for several minutes prior to warming up in bed but he denies having any overt fevers. Patient states he has not had anything to eat or drink for the past 4 days and his last bowel movement was on Monday. Patient has not taken any medication for treatment of his discomfort and denies having any cough, shortness for breath, vomiting, dysuria or hematuria. 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 Hypogonadism in male Surgical History History of meniscal tear History of shoulder surgery History of umbilical hernia repair Family History Father TIA (transient ischemic attack) Asthma Stroke Diabetes Hypertension Mother Asthma Cancer Dementia Paternal Grandmother Lung cancer Maternal Aunt Cancer Son Substance use disorder Social History Housing: House Alcohol intake: current Alcohol intake frequency: holidays/special occasions only Patient Tobacco Use Status: Never used Tobacco e-Cigarette/Vaping Use: Never Used Second Hand Smoke Exposure: No service: No Current occupational status: disabled Cognitive needs: No Hearing needs: No Vision needs: No Review of Systems Const All systems reviewed & are unremarkable except as noted in HPI and below Reports no additional complaints, Reports body aches, Reports chills (describes rigors at night), Reports fatigue, Denies headache(s) and Reports lethargy Eyes Reports no additional complaints ENT Reports no additional complaints and Denies headache(s) Card Reports chest pain, Denies rapid heart rate and Denies dyspnea Resp Denies cough, Denies dyspnea and Denies stridor GI Reports abdominal pain (left sided), Reports belching, Reports bloating, Reports change in bowel habits (no BM 3 days), Denies nausea and Denies vomiting Reports no additional complaints, Denies hematuria and Denies dysuria Musc Reports no additional complaints Skin/Breast Reports system reviewed and no additional complaints, except as documented Neuro Reports no additional complaints and Denies headache(s) Psych Reports no additional complaints Endo Reports no additional complaints and Reports fatigue Physical Exam Vital Signs: Last Vital Signs Temp 98.2 F 07/08/24 09:11 Pulse 85 07/08/24 09:11 BP 118/80 07/08/24 09:11 Pulse Ox 98 07/08/24 09:11 Oxygen Delivery Method Room Air 07/08/24 09:11 BMI result Body Mass Index 43.1 Patient is afebrile, appears uncomfortable seated. Const General: cooperative, well developed, alert, awake and Physically active; No comfortable Nutritional Appearance: obese Orientation/consciousness: patient oriented x3 Limitations: no limitations HEENT Head: Yes normal to inspection and Yes normocephalic Ears: hearing grossly normal bilaterally General nose exam: Normal external nose present Face and sinus: Yes normal facial exam Mouth: Normal oral and palatal mucosa present Eyes General: appearance normal, both eyes and all related structures Cardio Rate: regular rate Rhythm: regular rhythm GI Inspection: Yes distended and Yes obesity Palpation (GI): Tenderness to palpation present (GI) and Guarding due to palpation present (GI) in the LLQ, in the LUQ and other (left flank; no CVAT) Auscultation: Hypoactive bowel sounds present Neuro General: patient oriented x3 Psych Appearance: grossly normal Mental Status: mental status grossly normal Insight: Good insight present (Psych) Judgement: Good judgement present (Psych) Assessment & Plan Assessment & Plan (1) Chest pain: Comment: Patient denies having any chest pain this morning however reports recent history. Code(s): R07.9 - Chest pain, unspecified Qualifiers: Chest pain type: unspecified Qualified Code(s): R07.9 - Chest pain, unspecified Plan: Patient will go to the emergency department directly for ACS rule out. (2) Abdominal distention: Comment: No PPI medication x 4 days however patient's abdomen is tender, distended with hypoactive bowel sounds Code(s): R14.0 - Abdominal distension (gaseous) Plan: Patient go directly to the emergency department via private vehicle for further evaluation and care. Expect phoned to SATURNINO Cooley in the ED at 9:44am. Coding Level of Care Code Est Pt Level 3 (55839) Diagnoses Chest pain, unspecified type R07.9 Chest pain type: unspecified Abdominal distention R14.0 Time Spent (min) 20
[2024-07-08 09:11] VITALS: BP 118/80; PULSE 85; TEMP 36.8; O2SAT 98; BMI 43.1
== END 2024-07-08 09:51 | disposition home or self-care (01) ==
PROVIDERS: PCP Internal Medicine; Visit Provider Physician Assistant
DX: R07.9 Chest pain, unspecified (principal); R14.0 Abdominal distension (gaseous)

== ENCOUNTER → 2024-07-08 09:07 | Outpatient (BNVA) | payer OTHER, SELFPAY | PROVIDERS: PCP Internal Medicine; Visit Provider Physician Assistant | DX: R07.9 Chest pain, unspecified (principal); R14.0 Abdominal distension (gaseous) | CPT/HCPCS: 99212 ==

== ENCOUNTER 2024-07-08 10:02 | Emergency (ER) | payer OTHER, SELFPAY ==
--- NOTE | ~2024-07-08 | CT_ITS ---
EXAMINATION: CT ABDOMEN AND PELVIS WITH CONTRAST CLINICAL INFORMATION: Left lower quadrant pain. Left flank pain. COMPARISON: CT abdomen/pelvis May 26, 2019 TECHNIQUE: Multidetector volumetric images were obtained from the superior aspect of the liver through the pubic symphysis following administration 85 mL of Omnipaque 350 intravenous contrast. Sagittal and coronal reformatted images were obtained on the technologist's workstation. Oral contrast: No This CT examination was performed using dose optimization techniques as appropriate, variously including the following: *Automated exposure control *Adjustment of mA and/or kV according to patient size (this includes techniques or standardized protocols for targeted exams where dose is matched to indication/reason for exam; i.e. extremities or head) *Use of iterative reconstruction technique DLP: 1030 mGy-cm FINDINGS: LUNG BASES: Dependent changes. Small hiatal hernia. LIVER, GALLBLADDER, AND BILIARY TREE: The liver is normal in size and contour. No suspicious hepatic lesion or biliary ductal dilatation is present. The gallbladder is unremarkable with no evidence of radiopaque gallstones, gallbladder wall thickening, or obvious pericholecystic inflammatory changes. PANCREAS: No ductal dilatation. SPLEEN: Not enlarged. ADRENAL GLANDS: No adrenal mass. KIDNEYS AND URETERS: The kidneys are symmetric in size and enhancement. No hydronephrosis. No perinephric stranding. BLADDER: Unremarkable. GASTROINTESTINAL TRACT: Small and large bowel loops are of normal caliber. No small bowel obstruction. Appendix is within normal. Small duodenal diverticulum. ABDOMINAL WALL: No significant hernia is appreciated. LYMPH NODES: No bulky lymphadenopathy. VASCULAR: Normal caliber abdominal aorta. PELVIC VISCERA: Mildly enlarged prostate gland. OSSEOUS STRUCTURES: No destructive bone lesions. CT/CT abdomen pelvis w IV con IMPRESSION: No acute abnormality in the abdomen or pelvis. Fleischner guidelines were followed. Electronically signed by: Lino Cantor MD 07/08/2024 12:01 PM [facility] [place]
[2024-07-08 10:05] VITALS: BP 142/88; PULSE 73; RESP 18; TEMP 36.9; O2SAT 96; BMI 37.0
--- NOTE | 2024-07-08 10:21 | ED_ITS ---
HPI - General Adult General Chief complaint: Abdominal Pain Stated complaint: L Side Pain No Injury Time Seen by Provider: 07/08/24 10:20 Source: patient Mode of arrival: ambulatory Limitations: no limitations History of Present Illness ED Provider: Dora THORNE narrative: Patient is a 63-year-old male with history of BPH, HTN, obesity, NYASIA, GERD presenting to the ED from urgent care with complaint of left flank and left lower quadrant abdominal pain for the past four days. Reports overnight pain was severe, >10/10, currently rates at 5/10. Denies nausea, vomiting, diarrhea. Decreased PO intake because he feels full. Last normal BM was Monday. Denies urinary frequency, urgency, hematuria. Denies fevers. MD complaint: abdominal and flank pain Onset (ago): day(s) Location: abdomen and left Radiation: flank Severity scale (1-10): 5 Quality: aching Pain Consistency: colicky Treatments prior to arrival: none Related Data Home Medications ?Medication ?Instructions ?Recorded ?Confirmed cholecalciferol (vitamin D3) 25 25 mcg PO DAILY 05/28/20 02/27/24 mcg (1,000 unit) capsule multivitamin 1 tab PO DAILY 05/28/20 02/27/24 Previous Rx's ?Medication ?Instructions ?Recorded cpap #1 ea 01/14/21 syringe with needle 1 mL 28 gauge #50 ea 06/02/23 x 1/2 (Monoject TB) testosterone cypionate 200 mg/mL 80 mg (0.4 mL) subcut QWEEK 4 02/09/24 intramuscular oil weeks #4 mL (Depo-Testosterone) famotidine 20 mg tablet 20 mg PO BID #60 tabs 05/08/24 cefuroxime axetil 500 mg tablet 500 mg PO BID #14 tabs 07/08/24 cyclobenzaprine 5 mg tablet 5 mg PO TID PRN muscle spasm #10 07/08/24 tabs lidocaine 5 % topical patch 1 patch topical DAILY #15 ea 07/08/24 oxycodone 5 mg tablet 5 mg PO Q8H PRN severe pain (scale 07/08/24 score 7-10) #6 tabs Allergies Allergy/AdvReac Type Severity Reaction Status Date / Time No Known Allergies Allergy Verified 07/08/24 10:09 Review of Systems 2 Review of Systems: As per HPI Yes all other systems are reviewed and are negative Constitutional: Constitutional: Reports as per [facility] Past Medical History Medical History Knee pain Hemospermia Dislocation of right shoulder joint GERD (gastroesophageal reflux disease) Plantar fasciitis, bilateral Impaired glucose tolerance Umbilical hernia, incarcerated Chondromalacia, patella Axillary nerve injury Acute meniscal tear of left knee Tubular adenoma of colon Small bowel obstruction Iron deficiency anemia Hypercholesterolemia Urinary retention Osteochondritis dissecans, 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 Hypogonadism in male Surgical History History of meniscal tear History of shoulder surgery History of umbilical hernia repair Family History Family History Father TIA (transient ischemic attack) Asthma Stroke Diabetes Hypertension Mother Asthma Cancer Dementia Paternal Grandmother Lung cancer Maternal Aunt Cancer Son Substance use disorder Social History Social History Housing: House Alcohol intake: current Alcohol intake frequency: holidays/special occasions only Patient Tobacco Use Status: Never used Tobacco Smoked in Last 30 Days: No e-Cigarette/Vaping Use: Never Used Second Hand Smoke Exposure: No Use of substances other than those prescribed or required for medical reasons: No Advance Directives: No Advance Directives Information Provided: Yes Do you have a plan to hurt others: No Plan service: No Current occupational status: disabled Cognitive needs: No Hearing needs: No Vision needs: No Physical Exam ED Vital Signs: Vital Signs - 24 hr 07/08/24 10:05 07/08/24 12:30 Temperature 98.4 F 97.7 F Pulse Rate 73 77 Respiratory Rate 18 16 Blood Pressure 142/88 H 141/80 H Pulse Oximetry 96 97 Oxygen Delivery Method Room Air Room Air BMI result Body Mass Index 37.0 Vital signs have been reviewed and appear to be correct. Blood pressure normal. Heart rate normal. Respiratory rate normal. Temperature normal. Oxygen saturation normal. Const General: cooperative and no acute distress Nutritional Appearance: obese Orientation/consciousness: oriented to person, oriented to place, oriented to time and patient oriented x3 Limitations: no limitations HENMT Head: Yes normocephalic and Yes atraumatic Ears: external ears normal General nose exam: Normal external nose present Face and sinus: Yes face symmetric Mouth: oropharynx normal and moist mucous membranes Throat: Yes uvula midline Eyes Pupils: Equal, round and reactive pupils present Neck Neck: Yes normal visual inspection and Yes supple Resp Effort & Inspection: normal respiratory effort and able to speak in complete sentences Auscultation: clear to auscultation bilaterally Cardio Rate: regular rate Rhythm: regular rhythm Heart sounds: S1 normal heart sound present and S2 normal heart sound present GI Inspection: Yes distended Palpation (GI): Soft to palpation, Tenderness to palpation present (GI) in the LLQ, no guarding, not rigid and No Rebound tenderness present Auscultation: normoactive bowel sounds General: Yes CVA tenderness on the left Back/Spine/Pelvis Back: CVA tenderness Skin General skin exam: elasticity normal and turgor normal Neuro General: oriented to person, oriented to place, oriented to time, patient oriented x3, moves all extremities, no focal motor deficits and CN's II-XI intact bilaterally Cranial nerves: Yes Equal, round and reactive pupils present Cognition (Neuro): normal cognition Extrem General: Yes full ROM, Yes no pedal edema and Yes no calf tenderness Psych Mental Status: mental status grossly normal Affect: normal affect Thought process: Normal thought process present Medications Administered Discontinued Medications Generic Name Dose Route Start Last Admin Trade Name Yogeshq PRN Reason Stop Dose Admin Iohexol 85 ml 07/08/24 11:07 07/08/24 11:08 Iohexol 350 Mg/Ml 75 Ml Infus..Btl IV 07/08/24 11:08 85 ml ONCE ONE Administration Morphine Sulfate 4 mg 07/08/24 10:30 07/08/24 10:39 Morphine Sulfate 4 Mg/Ml Cartridge IVPUSH 07/08/24 10:31 4 mg ONCE ONE Administration Protocol Medical Decision Making Medical Decision Making MDM Narrative: Patient is a 63-year-old male with history of BPH, HTN, obesity, NYASIA, GERD presenting to the ED from urgent care with complaint of left flank and left lower quadrant abdominal pain for the past four days. On exam patient is awake, A+Ox3, VS WNL, afebrile, normal neurological exam without focal deficits, physical exam findings as above. Given reported symptoms and physical exam findings, initial differential includes UTI/pyelonephritis, renal/ureteral calculi, diverticulitis, constipation, obstruction, muscle strain. UA notable for 1+ leukocytes, trace blood, 11-20 WBCs, will treat for UTI. Labs unremarkable. CT notable for no acute abnormality in abdomen/pelvis. My interpretation is in agreement with the radiologist's interpretation. Results discussed with patient and all questions answered. Will treat with muscle relaxers, pain medication. Instructed patient to call PCP today for follow up appointment. Return precautions discussed at bedside. Patient verbalized understanding of and agreement with plan. Differential Diagnosis Differential Diagnoses: The differential diagnosis associated with the presentation includes As per [facility] Admission/Observation Consideration of admission/observation: Escalation of care including admission/observation considered Patient would have been admitted to the hospital had their work up had any findings where hospital admission was appropriate and their clinical presentation warranted hospital admission. Lab Data [facility] Lab Attestation statement: I reviewed the patient's lab results. As per [facility] 07/08/24 10:28 07/08/24 10:28 Labs: Lab Results 07/08/24 07/08/24 Range/Units 10:18 10:28 WBC 7.9 (4.8-10.8) X10*3/uL RBC 5.96 H (4.60-5.80) X10*6/uL Hgb 15.7 (14.0-18.0) g/dl Hct 47.6 (42.0-52.0) % MCV 79.9 L (80.0-98.0) fL MCH 26.3 L (27.0-33.0) pg MCHC 33.0 (31.0-36.0) g/dl RDW 14.6 (11.0-16.0) % Plt Count 289 (160-400) X10*3/uL MPV 9.2 L (9.4-12.4) fL Immature Gran % (Auto) 0.3 (0.0-0.4) % Neut % (Auto) 77.1 H (45-73) % Lymph % (Auto) 11.9 L (20-40) % [place] % (Auto) 7.8 (2-11) % Eos % (Auto) 2.4 (0-4) % Baso % (Auto) 0.5 (0-2) % Lymph # (Auto) 0.9 L (1.2-4.9) X10*3/uL [place] # (Auto) 0.6 (0.1-1.2) X10*3/uL Eos # (Auto) 0.2 (0.0-0.4) X10*3/uL Baso # (Auto) 0.0 (0.0-0.2) X10*3/uL Abs Immat Gran (auto) 0.02 (0.00-0.03) X10*3/uL Absolute Neuts (auto) 6.1 (2.0-8.3) x10*3/uL Absolute Nucleated RBC 0.000 (0.0-0.012) X10*3/uL Nucleated RBC % (auto) 0.0 (0.0-0.2) /100WBC Sodium 138 (135-145) mmol/L Potassium 3.8 (3.3-5.1) mmol/L Chloride 100 (96-108) mmol/L Carbon Dioxide 25 (22-29) mmol/L Anion Gap 17 (12-20) BUN 13 (9-16) mg/dL Creatinine 1.21 (0.5-1.4) mg/dL Estim Creat Clear Calc 76.6 Estimated GFR > 60 Random Glucose 94 (60-115) mg/dL Calcium 9.5 (8.4-10.2) mg/dL Total Bilirubin 0.9 (0.0-1.0) mg/dL Direct Bilirubin 0.3 (0.0-0.5) mg/dL AST 21 (5-37) U/L ALT 21 (0-40) U/L Alkaline Phosphatase 89 (39-117) U/L Total Protein 7.7 (6.5-8.0) g/dL Albumin 4.1 (3.5-5.0) g/dL Lipase 15 (8-78) U/L Urine Color Dark Yellow Urine Appearance Clear Urine pH 5.5 (5.0-9.0) Ur Specific Achille 1.025 (1.005-1.025) Urine Protein 30 (1+) H (Neg-Trace) mg/dL Urine Glucose (UA) Negative (Negative) mg/dL Urine Ketones 40 (Negative) mg/dL Urine Blood Trace H (Negative) Urine Nitrite Negative (Negative) Ur Leukocyte Esterase Small (1+) H (Negative) Urine RBC 3-5 H (0-2) /HPF Urine WBC 11-20 H (0-5) /HPF Ur Squamous Epith Cells 0-2 (0-2) /HPF Urine Bacteria None Seen (None Seen) Hyaline Casts 0-2 (0-2) /LPF Independent Interpretation I performed an independent interpretation of an: CT Scan Interpretation: No acute abnormality abdomen/pelvis on CT Radiology Impression Discussion of test interpretation with radiology: I have reviewed the radiologist's reading. Radiologist Impression: CT/CT abdomen pelvis w IV con IMPRESSION: No acute abnormality in the abdomen or pelvis. External Record Review External record reviewed: Inpatient record, Office record and Outpatient record Prescription Management I considered prescription management with: Pain Medication and Antibiotic Discharge Plan Discharge Clinical Impression: UTI (urinary tract infection), Lumbar strain Patient Disposition: Home, Self-Care Instructions: Urinary Tract Infection in Men (DC), Low Back Strain (ED), Acute Low Back Pain (ED), Back Pain (ED) Additional Instructions: You were evaluated in the emergency department today for back/flank pain. Your labs and abdominal CT scan did not show any acute abnormalities. You are being treated for a urinary tract infection with an antibiotic. Complete the full course as prescribed even if your symptoms improve. You are being prescribed a muscle relaxer which you can take every 8 hours as needed. Do not drink alcohol while taking this medication as it can increase drowsiness. We recommend that you take 600mg ibuprofen or 650 Tylenol every 6 hours as needed for pain. If necessary you can alternate these medications every 3 hours. For example, at 9:00 a.m. take Tylenol, then at noon take ibuprofen, then at 3:00 p.m. take Tylenol, etc.. You are being prescribed a small amount of oxycodone for severe pain. Call your primary care provider today to schedule follow-up appointment. Return to the emergency department if you develop worsening pain, or unable to tolerate fluids by mouth, have persistent vomiting, develop fever, have difficulty or are unable to urinate or any other new or concerning symptoms. Prescriptions: New oxycodone 5 mg tablet 5 mg PO Q8H PRN (Reason: severe pain (scale score 7-10)) Qty: 6 0RF Rx Instructions: Partial Fill upon patient request. cyclobenzaprine 5 mg tablet 5 mg PO TID PRN (Reason: muscle spasm) Qty: 10 0RF lidocaine 5 % adhesive patch,medicated 1 patch topical DAILY Qty: 15 0RF Rx Instructions: leave on most painful area for up to 12 hrs cefuroxime axetil 500 mg tablet 500 mg PO BID Qty: 14 0RF No Action famotidine 20 mg tablet 20 mg PO BID Qty: 60 1RF cholecalciferol (vitamin D3) 25 mcg (1,000 unit) capsule 25 mcg PO DAILY multivitamin Tablet 1 tab PO DAILY (DME) cpap See Rx Instructions .Route .MEDSUPPLY Qty: 1 0RF Rx Instructions: As directed (DME) Monoject TB 1 mL 28 gauge x 1/2 syringe See Rx Instructions .MEDSUPPLY Qty: 50 0RF Rx Instructions: As directed Qweekly testosterone cypionate [Depo-Testosterone] 200 mg/mL oil 80 mg subcut QWEEK 28 Days Qty: 4 5RF Print Language: Polish
[2024-07-08 10:27] LABS: Appearance Urine Clear; Color Urine Dark Yellow; Glucose Urine UA Negative (Negative); Leukocyte Esterase Urine Small (1+) (Negative); Nitrite Urine Negative (Negative); PH 5.5 (5.0-9.0); Specific Gravity - Urine 1.025 (1.005-1.025); UMIC TRIGGER UACC YES; Urine Blood Trace (Negative); Urine Ketones 40 mg/dL (Negative); Urine Protein 30 (1+) mg/dL (Neg-Trace)
[2024-07-08 10:32] LABS: MANUAL DIFF FLAG NO
[2024-07-08] MEDS: Morphine Sulfate 4 MG/ML CARTRIDGE IVPUSH (10:39)
[2024-07-08 10:41] LABS: Bacteria Urine None Seen (None Seen); Hyaline Casts Urine 0-2 /LPF (0-2); Squamous Epithelial Cell Urine 0-2 /HPF (0-2); UACC Culture Trigger YES
[2024-07-08 10:41] LABS: Basophils Percent Auto 0.5 % (0-2); Eosinophils Absolute Auto 0.2 X10*3/uL (0.0-0.4); Eosinophils Percent Auto 2.4 % (0-4); Hematocrit 47.6 % (42.0-52.0); Hemoglobin 15.7 g/dl (14.0-18.0); Imm Gran Abs Auto 0.02 X10*3/uL (0.00-0.03); Imm Gran Pct Auto 0.3 % (0.0-0.4); Lymphocytes Absolute Auto 0.9 X10*3/uL (1.2-4.9); Lymphocytes Percent Auto 11.9 % (20-40); Mean Corpuscular Hemoglobin 26.3 pg (27.0-33.0); Mean Corpuscular Volume 79.9 fL (80.0-98.0); Mean Platelet Volume 9.2 fL (9.4-12.4); Monocytes Absolute Auto 0.6 X10*3/uL (0.1-1.2); Monocytes Percent Auto 7.8 % (2-11); Neutrophils Absolute Auto 6.1 x10*3/uL (2.0-8.3); Neutrophils Percent Auto 77.1 % (45-73); Platelet Count 289 X10*3/uL (160-400); Red Blood Count 5.96 X10*6/uL (4.60-5.80); Red Cell Distribution Width 14.6 % (11.0-16.0); White Blood Count 7.9 X10*3/uL (4.8-10.8)
--- NOTE | 2024-07-08 10:43 | PC.NURSE ---
a&ox4. vss and up to date. pt presents to the ED c/o left sided flank pain the radiates to left side of abdomen x 4 days. pt denies any n/v/d/fever/chills. pt reports no BM x monday, decreased PO intake, and decreased urine output. otherwise denies any other urinary sx. left flank tender w/ palpation. pt denies trauma/lifting heavy. pt reports aggravating factors include laying flat. urine obtained in triage. 20gIV placed in the left AC - labs obtained/sent to lab. medication administered per provider order. effectiveness pending. pt waiting to go to CT at this time. on RA w/o difficulty. no sob/wob noted. respirations even/unlabored. partner bedside for support. plan of care ongoing. call molina placed within reach.
[2024-07-08 10:48] LABS: Alanine Aminotransferase 21 U/L (0-40); Albumin Level 4.1 g/dL (3.5-5.0); Alkaline Phosphatase 89 U/L (39-117); Anion Gap 17 (12-20); Aspartate Amino Transferase 21 U/L (5-37); Bilirubin Direct 0.3 mg/dL (0.0-0.5); Bilirubin Total 0.9 mg/dL (0.0-1.0); Blood Urea Nitrogen 13 mg/dL (9-16); Calcium 9.5 mg/dL (8.4-10.2); Carbon Dioxide 25 mmol/L (22-29); Chloride 100 mmol/L (96-108); Creatinine Clr Calc Pharmacy 76.6; Estimated Glomerular Filt Rate > 60; Glucose Random 94 mg/dL (60-115); Lipase 15 U/L (8-78); Potassium 3.8 mmol/L (3.3-5.1); Sodium 138 mmol/L (135-145); Total Protein 7.7 g/dL (6.5-8.0)
[2024-07-08] MEDS: iohexoL 350 MG/ML 75 ML INFUS..BTL 85 ML IV (11:08)
[2024-07-08 12:30] VITALS: BP 141/80; PULSE 77; RESP 16; TEMP 36.5; O2SAT 97
[2024-07-08 13:26] VITALS: BP 141/80; PULSE 77; RESP 16; TEMP 36.5; O2SAT 97
== END 2024-07-08 13:33 | disposition home or self-care (01) ==
PROVIDERS: Emergency Provider Emergency Medicine; PCP Internal Medicine
DX: N39.0 Urinary tract infection, site not specified (principal); S39.012A Strain of muscle, fascia and tendon of lower back, initial encounter; X58.XXXA Exposure to other specified factors, initial encounter; Y93.9 Activity, unspecified; Y92.9 Unspecified place or not applicable; Y99.9 Unspecified external cause status; R10.32 Left lower quadrant pain; I10 Essential (primary) hypertension; Z79.899 Other long term (current) drug therapy
CPT/HCPCS: 36415; 74177; 80053; 81001; 82248; 83690; 85025; 87086; 96374; 99284; J2270; Q9967

== ENCOUNTER 2024-08-13 10:07 | Outpatient (REF) | payer OTHER, SELFPAY ==
[2024-08-13 11:28] LABS: Hematocrit 43.8 % (42.0-52.0); Hemoglobin 15.1 g/dl (14.0-18.0); Mean Corpuscular HGB Conc 34.5 g/dl (31.0-36.0); Mean Corpuscular Hemoglobin 27.1 pg (27.0-33.0); Mean Corpuscular Volume 78.5 fL (80.0-98.0); Mean Platelet Volume 9.3 fL (9.4-12.4); Platelet Count 208 X10*3/uL (160-400); Red Blood Count 5.58 X10*6/uL (4.60-5.80); Red Cell Distribution Width 17.1 % (11.0-16.0); White Blood Count 6.6 X10*3/uL (4.8-10.8)
[2024-08-13 12:16] LABS: Prostate Specific Antigen 3.34 ng/mL (<0.05-4.0)
[2024-08-17 15:59] LABS: Testosterone, Total 1348 ng/dL (250-1100)
== END 2024-08-13 10:08 | disposition home or self-care (01) ==
LOC: HO.LAB 10:07
PROVIDERS: PCP Internal Medicine; Referring Provider Urology; Visit Provider Internal Medicine
DX: Z00.00 Encounter for general adult medical examination without abnormal findings (principal); G47.33 Obstructive sleep apnea (adult) (pediatric); E29.1 Testicular hypofunction; E78.00 Pure hypercholesterolemia, unspecified; R73.02 Impaired glucose tolerance (oral); K21.9 Gastro-esophageal reflux disease without esophagitis; N32.81 Overactive bladder; I10 Essential (primary) hypertension; M72.2 Plantar fascial fibromatosis; Z79.899 Other long term (current) drug therapy; Z12.5 Encounter for screening for malignant neoplasm of prostate; Z99.89 Dependence on other enabling machines and devices
CPT/HCPCS: 36415; 84153; 84403; 85027; 96127; 99396

== ENCOUNTER 2024-08-13 10:07 | Outpatient (AMB) | payer OTHER, SELFPAY ==
[2024-08-13 10:11] VITALS: BP 136/88; PULSE 89; O2SAT 97; BMI 36.7
--- NOTE | 2024-08-13 10:11 | MHC.PC.OV ---
Vital Signs 08/13/24 10:11 Height 5 ft 9 in Weight 248 lb 4 oz BMI 36.7 BP 136/88 Blood Pressure Location Lt brachial Position Sitting Pulse 89 Pulse Source Pulse Oximeter Pulse Oximetry (%) 97 Oxygen Delivery Method Room Air Intake Visit Reasons: Annual exam Allergies No Known Allergies Allergy (Verified 08/13/24 10:16) Medication List - Last Reconciled 08/13/24 by Marybel Fernandez MD cholecalciferol (vitamin D3) 25 mcg PO DAILY [cpap As directed] famotidine 20 mg PO BID multivitamin 1 tab PO DAILY syringe with needle (Monoject TB) As directed Qweekly testosterone cypionate (Depo-Testosterone) 80 mg (0.4 mL) subcut QWEEK 4 weeks Tobacco use date assessed: 08/13/24 Fall risk assessment: No Falls in past year Last assessed Fall Risk: 08/13/24 Dental Screening Dental Screen Date: 08/13/24 Did you have a dental visit in the last 12 months?: Yes Did you have a dental problem in the last 6 months where you did not have access to dental care?: No Was dental information given to patient?: Patient has dentist HPI Annual exam HPI Details 63-year-old obese male with obstructive sleep apnea hypogonadism hypercholesterolemia impaired glucose tolerance GERD overactive bladder with generalized anxiety disorder last seen in 03/02/2024. Patient is here for physical examPatient's colonoscopy is up-to-date 10/03/2022. Review of the notes in 07/08/2024 was in the emergency room and found to have a UTI. Patient also follows up with Pulmonary seen in May 28 for the obstructive sleep apnea and patient is compliant. Patient's last blood test was in 07/08/2024 cholesterol tested though in last 03/02/2024. 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 Hypogonadism in male Surgical History History of meniscal tear History of shoulder surgery History of umbilical hernia repair Family History Father TIA (transient ischemic attack) Asthma Stroke Diabetes Hypertension Mother Asthma Cancer Dementia Paternal Grandmother Lung cancer Maternal Aunt Cancer Son Substance use disorder Social History (Updated 08/13/24 @ 10:26 by Marybel Fernandez MD) Housing: House Alcohol intake: current Alcohol intake frequency: holidays/special occasions only Comment: once a week 1 beer Patient Tobacco Use Status: Never used Tobacco e-Cigarette/Vaping Use: Never Used Second Hand Smoke Exposure: No service: No Current occupational status: disabled Cognitive needs: No Hearing needs: No Vision needs: No Questionnaire PHQ-9 Over the last 2 weeks, how often have you been bothered by any of the following problems? 1. Little interest or pleasure in doing things: not at all 2. Feeling down, depressed, or hopeless: not at all 3. Trouble falling or staying asleep, or sleeping too much: not at all 4. Feeling tired or having little energy: not at all 5. Poor appetite or overeating: not at all 6. Feeling bad about yourself - or that you are a failure or have let yourself or your family down: not at all 7. Trouble concentrating on things, such as reading the newspaper or watching television: not at all 8. Moving or speaking so slowly that other people could have noticed. Or the opposite - being so fidgety or restless that you have been moving around a lot more than usual: not at all 9. Thoughts that you would be better off or of hurting yourself in some way: not at all Total score: 0 Depression Screening Interpretation: Negative Depression Screening Done: Yes 81830 - PHQ-9 Billing: Yes Source: Developed by Drs. Caesar Gonzalez, Lizzy Love, Gus Espino and colleagues, with an educational klaudia from [employer]. Thrive Questionnaire Date Thrive assessed: 08/13/24 I am a: Patient What is your living situation today?: I have a steady place to live Within the past 12 months, did the food you bought not last and you didn't have the money to get more?: Never true Within the past 12 months, did you worry whether your food would run out before you got money to buy more?: Never true Do you have trouble paying for medicines?: No Do you have trouble getting transportation to medical appointments?: No Do you have trouble paying your heating and electricity bill?: No Do you have trouble taking care of your child, family member or friend?: No Do you have trouble with day-to-day activities such as bathing, preparing meals, shopping, managing finances, etc.?: No Are you currently unemployed and looking for a job?: No Are you interested in more education?: No THRIVE Score: 0 AUDIT C Alcohol Use Questionnaire (AUDIT-C) 1. How often do you have a drink containing alcohol?: Monthly or less 2. How many drinks containing alcohol do you have on a typical day when you are drinking?: 1 or 2 3. How often do you have six or more drinks on one occasion?: Never Total Score: 1 JOSE ALEJANDRO-7 AMB Questionnaire JOSE ALEJANDRO-7 Date JOSE ALEJANDRO - 7 assessed: 08/13/24 Feeling nervous, anxious, or on edge: 0 = Not at all Not being able to stop or control worryin = Not at all Worrying too much about different things: 0 = Not at all Trouble relaxin = Not at all Being so restless that it is hard to sit still: 0 = Not at all Becoming easily annoyed or irritable: 0 = Not at all Feeling afraid as if something awful might happen: 0 = Not at all Total JOSE ALEJANDRO-7 score (0-4 normal; 5-9 mild; 10-14 moderate; 15-21 severe): 0 Source: Developed by Drs. Caesar Gonzalez, Lizzy Love, Gus Espino and colleagues, with an educational klaudia from [employer]. JOSE ALEJANDRO-7 Assessment Billing JOSE ALEJANDRO-7 Assessment Tool: JOSE ALEJANDRO-7 Assessment 66389 Review of Systems Const Denies poor appetite and Denies weakness Eyes Denies no additional complaints ENT Reports Normal hearing present, Denies dizziness, Denies nasal congestion, Denies tinnitus and Denies sore throat Card Denies chest pain, Denies syncope, Denies rapid heart rate and Denies dyspnea Resp Denies cough and Denies dyspnea GI Denies change in stool character, Reports constipation, Denies diarrhea, Denies nausea and Denies vomiting Denies dysuria and Denies urinary frequency Neuro Reports Normal hearing present, Denies confusion, Denies dizziness, Denies syncope and Denies weakness Psych Denies confusion Physical exam (Primary Care) Vital Signs: Last Vital Signs Pulse 89 08/13/24 10:11 BP 136/88 08/13/24 10:11 Pulse Ox 97 08/13/24 10:11 Oxygen Delivery Method Room Air 08/13/24 10:11 BMI result Body Mass Index 36.7 Tobacco/Smoking Status: Tobacco use Status Tobacco use date assessed 08/13/24 08/13/24 10:18 Patient Tobacco Use Status Never used Tobacco 08/13/24 10:18 e-Cigarette/Vaping Use Never Used 08/13/24 10:18 PHQ-9: PHQ-9 Score PHQ-9: Total score 0 08/13/24 10:18 Depression Screening Interpretation: Negative Thrive Assessment: Date of Thrive Assessment Date Thrive assessed 08/13/24 08/13/24 10:18 Const General: No confusion Orientation/consciousness: No confusion HENMT Head: Yes normocephalic Ears: external ears normal and TM's normal bilaterally Face and sinus: Yes normal facial exam Mouth: moist mucous membranes Throat: Yes tonsils normal Eyes Conjunctivae: conjunctivae normal Pupils: Equal, round and reactive pupils present and Pupil accommodation reflex normal Direct Ophthalmoscopy: normal light reflex Neck Neck: No lymphadenopathy Thyroid: Thyroid normal Chest Chest palpation & inspection: normal inspection of the chest Resp Effort & Inspection: normal respiratory effort and no audible wheezes Auscultation: clear to auscultation bilaterally, no crackles, no wheezes and lung sounds not diminished Cardio Rate: regular rate Rhythm: regular rhythm Peripheral pulses: radial pulses present and dorsalis pedis present GI Other: declined rectal exam Palpation (GI): no masses Auscultation: normal bowel sounds and normoactive bowel sounds Rectal Exam - Male: Yes deferred Skin General skin exam: no rashes or lesions noted Rashes: no rashes Neuro General: No confusion Cranial nerves: Yes Equal, round and reactive pupils present and Yes Normal hearing present Cognition (Neuro): normal cognition Gait exam (Neuro): Normal gait present Motor exam (neuro): 5/5 motor strength present throughout Deep tendon reflexes (DTR's): Right brachioradialis reflex intensity grade: 2+, Left brachioradialis reflex intensity grade: 2+, Right patellar reflex intensity grade: 2+ and Left patellar reflex intensity grade: 2+ Extrem General: No edema Coding Level of Care Code Est Pt Prev Care 40-64y(55823) Diagnoses Annual physical exam Z00.00 Obstructive sleep apnea G47.33 Hypogonadism in male E29.1 Hypercholesterolemia E78.00 Impaired glucose tolerance R73.02 Gastroesophageal reflux disease without esophagitis K21.9 Esophagitis presence: without esophagitis Overactive bladder N32.81 Hypertension I10 Plantar fasciitis, bilateral M72.2 Additional Codes JOSE ALEJANDRO-7 Assessment Billing - JOSE ALEJANDRO-7 Assessment Tool: JOSE ALEJANDRO-7 Assessment 57638 ([id number]) PHQ-9 - 10708 - PHQ-9 Billing: Yes ([id number]) Assessment & Plan Assessment & Plan (1) Annual physical exam: Code(s): Z00.00 - Encounter for general adult medical examination without abnormal findings Category: Medical Plan: Patient is advised to eat healthy, keep well hydrated, keep active and have adequate sleep. (2) Obstructive sleep apnea: Comment: CPAP Code(s): G47.33 - Obstructive sleep apnea (adult) (pediatric) Category: Medical Plan: Continue to use the CPAP more than 4 hours a night and benefits from this and follows up with Pulmonary (3) Hypogonadism in male: Code(s): E29.1 - Testicular hypofunction Category: Medical Plan: Continuing with urology follow-up and on testosterone. Blood work was requested today by Urology. (4) Hypercholesterolemia: Code(s): E78.00 - Pure hypercholesterolemia, unspecified Category: Medical Plan: Avoid fried foods, chicken skin, eggs, butter margarine, pastries and meat. Be it pork or beef they have a lot of cholesterol LDL goal of less than 130 and triglyceride of less than 150 (5) Impaired glucose tolerance: Code(s): R73.02 - Impaired glucose tolerance (oral) Category: Medical Plan: Decrease the amount of carbohydrate intake, pasta, bread, rice and potatoes are all sugar and that is aside from all the sweet stuff, remember that fruits are good but they are Sweet also. (6) GERD (gastroesophageal reflux disease): Code(s): K21.9 - Gastro-esophageal reflux disease without esophagitis Category: Medical Qualifiers: Esophagitis presence: without esophagitis Qualified Code(s): K21.9 - Gastro-esophageal reflux disease without esophagitis Plan: Avoid the foods that causes that usually spicy foods, tomato products, juices, coffee, soda and foods that your sensitive to. After eating do not lie down, allow 3-4 hours before in lie down. And keep the head of bed above 30 degrees to avoid the acid from going up. (7) Overactive bladder: Code(s): N32.81 - Overactive bladder Category: Medical Plan: Timed voiding meaning every 1-2 hours even if you do not feel like urinating empty the bladder, avoid drinks with high sweet content like juices or caffeine that makes her urinate, 2 hours before you sleep hold liquids so that in the morning you do not get the bladder to be too full. (8) Hypertension: Code(s): I10 - Essential (primary) hypertension Category: Medical Plan: Continue with blood pressure medication. Decrease salt intake and exercise patient on no medication and blood pressure is controlled on no medication (9) Plantar fasciitis, bilateral: Code(s): M72.2 - Plantar fascial fibromatosis Category: Medical Plan: Discussion about plantar fasciitis as well as conservative therapy of exercises. If the pain persist patient will call and referral to Podiatry.
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
== END 2024-08-13 10:51 | disposition home or self-care (01) ==
PROVIDERS: PCP Internal Medicine; Visit Provider Internal Medicine
DX: Z00.00 Encounter for general adult medical examination without abnormal findings (principal); G47.33 Obstructive sleep apnea (adult) (pediatric); E78.00 Pure hypercholesterolemia, unspecified; R73.02 Impaired glucose tolerance (oral); K21.9 Gastro-esophageal reflux disease without esophagitis; N32.81 Overactive bladder; I10 Essential (primary) hypertension; M72.2 Plantar fascial fibromatosis

== ENCOUNTER 2024-09-11 13:56 | Outpatient (AMB) | payer OTHER, SELFPAY ==
--- NOTE | 2024-09-11 13:56 | A.OFFVIS_ITS ---
Intake Visit Reasons: 6M PSA/CBC/Testo(set)confirmed Intake Note: Patient presents for tele visit follow up on labs * testosterone:1348 * PSA:3.34 Urology Medication: Testosterone Antibiotic Allergies:None Blood Thinners:None Centrifugal Machine Tender Required: No Allergies No Known Allergies Allergy (Verified 09/11/24 14:00) HPI Comments Details: Adonis CLAIRE is a very pleasant male. He is a patient Dr Fernandez. He is seen for the following urologic conditions - hypogonadism - lower urinary tract symptoms - primarily de Jun overactive bladder following prostate procedure Not interested in InterStim Discussed potential benefit from weight loss. Acknowledged this would not be an easy thing to do. Testosternone labs 08/06 T 1350 P 3.3 labs Monday Hypogonadism: Testosterone at 500 Continue with 0.4 cc subcu weekly He presents today for further evaluation and followup of his hypogonadism. Initial symptoms include erectile dysfunction Yes decreased libido Yes change in mood/depression Yes in muscle size/strength Yes increased fatigue/malaise Yes The onset of symptoms has been gradual. Associate conditions include obstructive sleep apnea Yes Treatment since 2011 CAD No obesity Yes stress - financial, family, employment No heavy alcohol or illicit drug use No Laboratory results 01/30 , baseline T 199, FSH 4.5, Est 35 Low testosterone with elevated FSH and estrogen consistent with estrogen shunting with appropriate pituitary response 03/01 T 188 Est 16 Free T 41 06/01 T 271, 08/01 T260, 03/02 T , PSA 1.4 - 09/03 T 491, PSA 2.2, 05/04 T 598 P 3.2, 06/04 T 475 PSA 2.9, 06/05 590 3.6, 12/05 T 488 Prior therapy includes 08/01 Testosterone gel with minimal effect. 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 Lower Urinary Tract Symptoms: Detrusor Hyperactivity and impaired contractility Current visit is for further evaluation of, lower urinary tract symptoms, predominate irritative with weak stream Current treatment includes - Previously trialed Flomax with minimal response, oxybutynin with poor response, tolterodine and myrbetriq, doxazosin, bethanechol - 06/04 Botox to bladder - marginal effect Prostate Symptom Score 9/19 , Moderate (9-19), Bother 4. Symptoms include 9/ , weak stream, frequency, and are progressing Investigations - October 2020 cystoscopy open bladder neck from prior TURP Testing at next visit will include bladder scan. 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 Hypogonadism in male Surgical History History of meniscal tear History of shoulder surgery History of umbilical hernia repair Family History Father TIA (transient ischemic attack) Asthma Stroke Diabetes Hypertension Mother Asthma Cancer Dementia Paternal Grandmother Lung cancer Maternal Aunt Cancer Son Substance use disorder Social History Housing: House Alcohol intake: current Alcohol intake frequency: holidays/special occasions only Comment: once a week 1 beer Patient Tobacco Use Status: Never used Tobacco e-Cigarette/Vaping Use: Never Used Second Hand Smoke Exposure: No service: No Current occupational status: disabled Cognitive needs: No Hearing needs: No Vision needs: No Review of Systems Const All systems reviewed & are unremarkable except as noted in HPI and below Reports no additional complaints Resp Reports no additional complaints GI Reports no additional complaints Reports as per HPI Musc Reports no additional complaints Physical Exam Telemedicine evaluation Appropriate responses Regular breathing rate and rhythm HEENT Head: Yes normal to inspection Ears: hearing grossly normal bilaterally Eyes General: appearance normal, both eyes and all related structures Neck Neck: Yes normal visual inspection Chest Chest palpation & inspection: normal inspection of the chest Resp Effort & Inspection: normal respiratory effort and able to speak in complete sentences Telehealth Telehealth Telehealth Platform: [facility] Location of provider rendering services: practice address Location of patient: address on file Patient Identification confirmed using: Name, : Yes Telehealth method: video Patient verbally consented to treatment: Yes Patient verbally consented to billing insurance company: Yes Patient informed of any privacy concerns related to visit: Yes Minutes spent on Phone/Video with Pt.: 15 Assessment & Plan Assessment & Plan (1) Overactive bladder: Code(s): N32.81 - Overactive bladder Category: Medical (2) Hypogonadism in male: Code(s): E29.1 - Testicular hypofunction Category: Medical Plan Six-month follow-up PSA Patient Instructions: Imaging studies, laboratory and physical exam results were discussed and reviewed in detail. No major barriers to patient understanding were identified. An opportunity to ask questions regarding the treatment plan was provided. All questions were answered. The patient expressed understanding and agreement with the above treatment plan. The patient is aware they should contact our office by phone for worsening of their current condition or the appearance of new urologic symptoms. Compliance is encouraged with any medications and followup testing that is ordered. It is a privilege to participate in the urologic care of your patient. If you have any questions or concerns regarding treatment for the above conditions, or other urologic issues, please do not hesitate to contact me. The office telephone contact is [phone]. This note is constructed using voice recognition software. While every effort has been made to ensure accuracy roustabout crew leader errors may have been included. Yours sincerely, Dr Harjit Awan MD, LISA [facility] Urology Providers of Expert, Compassionate Care for the Genitourinary System Coding Level of Care Code Tele Est Pt Level 3 (36732) Diagnoses Overactive bladder N32.81 Hypogonadism in male E29.1
--- OUTSIDE RECORDS SUMMARY | 2024-09-11 16:15 | XMS_ITS | Patient Health Record ---
Author Organization [facility] Address [address] [place] [address] Care Team Providers Care Net Making Supervisor Name Role Phone Marybel Fernandez MD Primary Care Provider Caesar Barraza [phone] REASON FOR REFERRAL No Information MEDICATIONS Medication [...] malignant neoplasm of colon (Z12.11) Active confirmed 284589207 Problem History of adenomatous polyp of colon (Z86.010) Active confirmed 224218057 Problem Diverticulosis of large intestine without perforation or abscess without bleeding (K57.30) Active confirmed Diverticul ar disease of colon (953061879) Problem Gastroesophageal reflux disease (K21.9) Active confirmed Gastroesophagea l reflux disease (605133758) Problem Preprocedural examination (Z01.818) Active confirmed 925482596 Problem Gastritis (K29.70) Active confirmed Gas tritis (9338122) Problem Belching (R14.2) Active confirmed Belch ing (454198324) PLAN OF TREATMENT Future Test Test Name Order Date COLONOSCOPY 07/12/2011 COLONOSCOPY 12/28/2016 UPPER GI ENDOSCOPY 07/21/2022 COLONOSCOPY 07/21/2022 Insurance Providers Payer Name Payer Address Payer Phone Subscriber Number Group Number Insured Name Patient Relationship to Insured Coverage Start Date Coverage End Date [facility] [address] [place] [phone] [id number] GLORIA CLAIRE Self - patient is the insured MEDICAL (GENERAL) HISTORY Medical History History ICD Code Denies [place],DM,CVA,Lung disease,renal dise ase Screening colonoscopy in 2010--small [...]
== END 2024-09-11 14:40 | disposition home or self-care (01) ==
LOC: HO.HUSH 13:56
PROVIDERS: PCP Internal Medicine; Visit Provider Urology
DX: N32.81 Overactive bladder (principal); E29.1 Testicular hypofunction
CPT/HCPCS: 99213

== ENCOUNTER 2024-11-11 10:57 | Outpatient (AMB) | payer OTHER, SELFPAY ==
[2024-11-11 10:58] VITALS: BP 122/78; PULSE 94; TEMP 36.3; O2SAT 98; BMI 35.3
--- NOTE | 2024-11-11 10:58 | MHC.PC.OV ---
Vital Signs 11/11/24 10:58 Height 5 ft 9 in Weight 239 lb 6 oz BMI 35.3 BP 122/78 Blood Pressure Location Lt brachial Position Sitting Pulse 94 Pulse Source Pulse Oximeter Temp 97.3 F Temp Source Temporal Artery Scan Pulse Oximetry (%) 98 Oxygen Delivery Method Room Air Intake Visit Reasons: obesity, plantar fasciitis [facility]AS[facility] Allergies No Known Allergies Allergy (Verified 11/11/24 11:02) Tobacco use date assessed: 11/11/24 Fall risk assessment: No Falls in past year Last assessed Fall Risk: 11/11/24 Dental Screening Dental Screen Date: 11/11/24 Did you have a dental visit in the last 12 months?: Yes Did you have a dental problem in the last 6 months where you did not have access to dental care?: No Was dental information given to patient?: Patient has dentist [facility] Medical History Knee pain Hemospermia Dislocation of right shoulder joint GERD (gastroesophageal reflux disease) Plantar fasciitis, bilateral Impaired glucose tolerance Umbilical hernia, incarcerated Chondromalacia, patella Axillary nerve injury Acute meniscal tear of left knee Tubular adenoma of colon Small bowel obstruction Iron deficiency anemia Hypercholesterolemia Urinary retention Osteochondritis dissecans, 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 Hypogonadism in male Surgical History History of meniscal tear History of shoulder surgery History of umbilical hernia repair Family History Father TIA (transient ischemic attack) Asthma Stroke Diabetes Hypertension Mother Asthma Cancer Dementia Paternal Grandmother Lung cancer Maternal Aunt Cancer Son Substance use disorder Social History Housing: House Alcohol intake: current Alcohol intake frequency: holidays/special occasions only Comment: once a week 1 beer Patient Tobacco Use Status: Never used Tobacco e-Cigarette/Vaping Use: Never Used Second Hand Smoke Exposure: No service: No Current occupational status: disabled Cognitive needs: No Hearing needs: No Vision needs: No Questionnaire PHQ-9 Over the last 2 weeks, how often have you been bothered by any of the following problems? 1. Little interest or pleasure in doing things: not at all 2. Feeling down, depressed, or hopeless: not at all 3. Trouble falling or staying asleep, or sleeping too much: not at all 4. Feeling tired or having little energy: not at all 5. Poor appetite or overeating: not at all 6. Feeling bad about yourself - or that you are a failure or have let yourself or your family down: not at all 7. Trouble concentrating on things, such as reading the newspaper or watching television: not at all 8. Moving or speaking so slowly that other people could have noticed. Or the opposite - being so fidgety or restless that you have been moving around a lot more than usual: not at all 9. Thoughts that you would be better off or of hurting yourself in some way: not at all Total score: 0 Depression Screening Interpretation: Negative Depression Screening Done: Yes 93167 - PHQ-9 Billing: Yes Source: Developed by Drs. Caesar Gonzalez, Lizzy Love, Gus Espino and colleagues, with an educational klaudia from [employer]. Thrive Questionnaire Date Thrive assessed: 11/11/24 I am a: Patient What is your living situation today?: I have a steady place to live Within the past 12 months, did the food you bought not last and you didn't have the money to get more?: Never true Within the past 12 months, did you worry whether your food would run out before you got money to buy more?: Never true Do you have trouble paying for medicines?: No Do you have trouble getting transportation to medical appointments?: No Do you have trouble paying your heating and electricity bill?: No Do you have trouble taking care of your child, family member or friend?: No Do you have trouble with day-to-day activities such as bathing, preparing meals, shopping, managing finances, etc.?: No Are you currently unemployed and looking for a job?: No Are you interested in more education?: No THRIVE Score: 0 AUDIT C Alcohol Use Questionnaire (AUDIT-C) 1. How often do you have a drink containing alcohol?: Monthly or less 2. How many drinks containing alcohol do you have on a typical day when you are drinking?: 1 or 2 3. How often do you have six or more drinks on one occasion?: Never Total Score: 1 JOSE ALEJANDRO-7 AMB Questionnaire JOSE ALEJANDRO-7 Date JOSE ALEJANDRO - 7 assessed: 11/11/24 Feeling nervous, anxious, or on edge: 0 = Not at all Not being able to stop or control worryin = Not at all Worrying too much about different things: 0 = Not at all Trouble relaxin = Not at all Being so restless that it is hard to sit still: 0 = Not at all Becoming easily annoyed or irritable: 0 = Not at all Feeling afraid as if something awful might happen: 0 = Not at all Total JOSE ALEJANDRO-7 score (0-4 normal; 5-9 mild; 10-14 moderate; 15-21 severe): 0 Source: Developed by Drs. Caesar Gonzalez, Lizzy Love, Gus Espino and colleagues, with an educational klaudia from [employer]. JOSE ALEJANDRO-7 Assessment Billing JOSE ALEJANDRO-7 Assessment Tool: JOSE ALEJANDRO-7 Assessment 45473 Physical exam (Primary Care) Vital Signs: Last Vital Signs Temp 97.3 F 11/11/24 10:58 Pulse 94 11/11/24 10:58 BP 122/78 11/11/24 10:58 Pulse Ox 98 11/11/24 10:58 Oxygen Delivery Method Room Air 11/11/24 10:58 BMI result Body Mass Index 35.3 Tobacco/Smoking Status: Tobacco use Status Tobacco use date assessed 11/11/24 11/11/24 11:03 Patient Tobacco Use Status Never used Tobacco 11/11/24 11:03 e-Cigarette/Vaping Use Never Used 11/11/24 11:03 PHQ-9: PHQ-9 Score PHQ-9: Total score 0 11/11/24 11:28 Depression Screening Interpretation: Negative Thrive Assessment: Date of Thrive Assessment Date Thrive assessed 11/11/24 11/11/24 11:03 Const General: alert; No acute distress Eyes Conjunctivae: conjunctivae normal Resp Auscultation: clear to auscultation bilaterally Cardio Rate: regular rate Rhythm: regular rhythm GI Inspection: Yes normal to inspection Extrem General: Yes normal to inspection and No edema Coding Level of Care Code Est Pt Level 4 (17098) Complex EM visit Add On G2211 Diagnoses Incomplete emptying of bladder due to benign prostatic hyperplasia N40.1; R33.9 Hypertension I10 Generalized anxiety disorder F41.1 Obesity (BMI 30-39.9) E66.9 Gastroesophageal reflux disease without esophagitis K21.9 Esophagitis presence: without esophagitis Hypogonadism in male E29.1 Obstructive sleep apnea G47.33 Additional Codes JOSE ALEJANDRO-7 Assessment Billing - JOSE ALEJANDRO-7 Assessment Tool: JOSE ALEJANDRO-7 Assessment 42463 ([id number]) PHQ-9 - 73863 - PHQ-9 Billing: Yes ([id number]) Assessment & Plan Assessment & Plan (1) Incomplete emptying of bladder due to benign prostatic hyperplasia: Code(s): N40.1 - Benign prostatic hyperplasia with lower urinary tract symptoms; R33.9 - Retention of urine, unspecified Category: Medical Plan: Follows up with urology continue to monitor (2) Hypertension: Code(s): I10 - Essential (primary) hypertension Category: Medical Plan: Continue with blood pressure medication. Decrease salt intake and exercise diet controlled (3) Generalized anxiety disorder: Code(s): F41.1 - Generalized anxiety disorder Category: Medical Plan: stable (4) Obesity (BMI 30-39.9): Code(s): E66.9 - Obesity, unspecified Category: Medical Plan: diet and exercise (5) GERD (gastroesophageal reflux disease): Code(s): K21.9 - Gastro-esophageal reflux disease without esophagitis Category: Medical Qualifiers: Esophagitis presence: without esophagitis Qualified Code(s): K21.9 - Gastro-esophageal reflux disease without esophagitis Plan: Avoid the foods that causes that usually spicy foods, tomato products, juices, coffee, soda and foods that your sensitive to. After eating do not lie down, allow 3-4 hours before in lie down. And keep the head of bed above 30 degrees to avoid the acid from going up. (6) Hypogonadism in male: Code(s): E29.1 - Testicular hypofunction Category: Medical Plan: Continue to follow-up with urology on testosterone (7) Obstructive sleep apnea: Comment: CPAP Code(s): G47.33 - Obstructive sleep apnea (adult) (pediatric) Category: Medical Plan: continue to use the CPAP more than 4 hours a night and benefits from this Plan History of Present Illness The patient is a 64-year-old male presenting with urgent continence issues. He reports persistent symptoms of an overactive bladder that have continued despite attempts at management with various medications including tamsulosin, finasteride, and doxazosin. Although he has tried several pharmacological interventions, the condition persists, particularly manifesting as nocturia with a reduced urinary stream and occasional trickling at night. During daytime, there is some improvement, though problems remain. The patient retains the ability to voluntarily control urination but experiences incomplete bladder emptying sensations at night. The patient has a significant medical history of obstructive sleep apnea, managed with continuous positive airway pressure (CPAP) therapy, and continues to experience benefits when adhering to a regimen of using the CPAP for more than four hours a night. He also has a history of hypogonadism and is currently on testosterone replacement therapy. The last testosterone level measured in July was elevated at 1348 ng/dL. The plan is for another evaluation in January following a previous urology consult in August. Apart from the overactive bladder symptoms, the patient struggles with hypercholesterolemia, previously recording an LDL cholesterol level of 107 mg/dL in February 2024 and maintains good blood pressure control (122/78 mmHg) under antihypertensive therapy. He also has impaired glucose tolerance, and lifestyle measures have been part of his health maintenance. An obesity diagnosis underpins his presentations, though efforts towards weight management are ongoing. Health Maintenance - CPAP therapy adherence for obstructive sleep apnea - Upcoming testosterone level assessment in January - Encouragement towards weight management through diet and exercise - Continuation of antihypertensive regimen, emphasizing monitored blood pressure - Recommendation for pneumonia vaccination not yet undertaken Social History - Recent shift to poor insurance coverage post-age 64, leading to financial constraints on health expenses - History of good insurance coverage until recently; current insurance issues creating stress - No recent flu or pneumonia vaccinations - No employment status discussed Review of Systems - Genitourinary: Reports nocturia and reduced urinary stream, with trickling at night. Denies incontinence. - Cardiovascular: Denies swelling in legs. Physical Exam Results - Labs: Elevated testosterone level of 1348 ng/dL, July; LDL cholesterol at 107 mg/dL, February; prior blood work otherwise normal, July. - Imaging: CT scan in June 2024 with negative results. Plan Continued monitoring and follow-up with urology are essential for ongoing management of overactive bladder symptoms. The patient benefits from CPAP therapy for obstructive sleep apnea and is encouraged to maintain compliance. Concern regarding elevated testosterone levels warrants a follow-up test planned for January. Blood pressure control is effectively maintained with current antihypertensive therapy. Weight management efforts continue with a focused approach on diet and exercise. The patient agreed to adjust famotidine to 40 mg for better control of acid reflux symptoms. Consideration for vaccination remains part of the health maintenance plan, though not yet acted upon. Patient was informed and verbally consented to the use of an ambient scribe for clinic note documentation during this visit. Discussion Notes During this visit, I reviewed the patient's overactive bladder issues and discussed the contribution of pharmacological options, emphasizing the importance of following up with urology for further interventions. We discussed the merits of CPAP therapy adherence for sleep apnea and the need for ongoing management of hypogonadism with a pending testosterone level check. The discussion included the therapeutic regimen for hypertension and the positive current blood pressure readings. The importance of lipid management and healthy lifestyle choices was underscored. I introduced an increase in famotidine dosage to address incomplete relief from acid reflux. Discussions ensued on the current status of vaccinations and possible future administration pending patient readiness. Patient Instructions - Follow up with urology regarding ongoing bladder issues. - Continue CPAP use for at least four hours nightly. - Maintain current blood pressure regimen; monitor regularly. - Prepare for a testosterone level test in January and review results. - Implement dietary and exercise modifications for weight management. - Increase famotidine to 40 mg as discussed to better manage reflux. - Consider flu and pneumonia vaccinations for future care. - Next physical exam planned in six months; blood work to be done two weeks prior. Orders: Orders Comprehensive Met. Panel 6 Months E78.00 - Pure hypercholesterolemia, unspecified Thyroid Stimulating Hormone 6 Months E78.00 - Pure hypercholesterolemia, unspecified Lipid Panel 6 Months E78.00 - Pure hypercholesterolemia, unspecified UA CC w/rflx Micro + Cult 6 Months E78.00 - Pure hypercholesterolemia, unspecified, R30.0 - Dysuria Complete Blood Count Auto Diff 6 Months E78.00 - Pure hypercholesterolemia, unspecified Free T4 (Free Thyroxine) 6 Months E78.00 - Pure hypercholesterolemia, unspecified Vitamin B12 and Folate 6 Months E78.00 - Pure hypercholesterolemia, unspecified Prostate Specific Antigen Scr 6 Months E78.00 - Pure hypercholesterolemia, unspecified Medications: Changed From famotidine 20 mg PO BID 60 tabs 1RF K21.9 - Gastro-esophageal reflux disease without esophagitis To famotidine 40 mg PO BID 180 tabs 1RF K21.9 - Gastro-esophageal reflux disease without esophagitis
--- OUTSIDE RECORDS SUMMARY | 2024-11-11 12:26 | XMS_ITS | Patient Health Record ---
Author Organization [facility] Address [address] [place] [address] Care Team Providers Care Correspondence Transcriber Name Role Phone Marybel Fernandez MD Primary Care Provider Caesar Barraza [phone] Reason For Referral No Information Medications Medication SIG (Take, Route, Frequency, Duration) Notes [...] Cypionate 200 MG/ML Intramuscular for 28 Active Immunizations Vaccine Route Administration Date Status Comme nts Flu vaccine, nasal Unknown 06/14/2016 Administered Influenza Unknown 07/21/2022 Refused Social History Alcohol Screen Question Answer Notes Did you [...] Never (0 point) Points 3 Interpretation Negative Section Notes: He doesn't smoke or use any significant amounts of alcohol He doesn't smoke or use any significant amounts of alcohol He doesn't smoke or use any significant amounts of alcohol He doesn't smoke or use any significant amounts of alcohol Problems Problem Type SNOMED Code ICD Code Onset Dates Problem Status W/U Status Risk Notes Problem [id number] Encounter for screening for malignant neoplasm of colon (Z12.11) Active confirmed Problem 713514262 History of adenomatous polyp of colon (Z86.010) Active confirmed Problem Diverticular disease of colon (553051423) Diverticulosis of large intestine without perforation or abscess without bleeding (K57.30) Active confirmed Problem Gastroesophageal reflux disease (604936613) Gastroesophageal reflux disease (K21.9) Active confirmed Problem 177787670 Preprocedural examination (Z01.818) Active confirmed Problem Gastritis (4724718) Gastritis (K29.70) Active c onfirmed Problem Belching (034857053) Belching (R14.2) Active confirmed Plan Of Treatment Future Test Test Name Order Date COLONOSCOPY 07/12/2011 COLONOSCOPY 12/28/2016 UPPER GI ENDOSCOPY 07/21/2022 COLONOSCOPY 07/21/2022 Insurance Providers Payer Name Payer Address Payer Phone Subscriber Number Group Number Insured Name Patient Relationship to Insured Coverage Start Date Coverage End Date [facility] [address] [place] [phone] [id number] GLORIA CLAIRE Self - patient is the insured Medical (General) History Medical History History ICD Code Denies NM,DM,CVA,Lung disease,renal dise ase Screening colonoscopy in 2010--small [...]
== END 2024-11-11 11:41 | disposition home or self-care (01) ==
LOC: HO.HMCH 10:57
PROVIDERS: PCP Internal Medicine; Visit Provider Internal Medicine
DX: N40.1 Benign prostatic hyperplasia with lower urinary tract symptoms (principal); E66.9 Obesity, unspecified; Z68.35 Body mass index [BMI] 35.0-35.9, adult; R33.9 Retention of urine, unspecified; I10 Essential (primary) hypertension; F41.1 Generalized anxiety disorder; K21.9 Gastro-esophageal reflux disease without esophagitis; E29.1 Testicular hypofunction; G47.33 Obstructive sleep apnea (adult) (pediatric)

== ENCOUNTER → 2024-11-11 10:57 | Outpatient (BNVA) | payer OTHER, SELFPAY | PROVIDERS: PCP Internal Medicine; Visit Provider Internal Medicine | DX: N40.1 Benign prostatic hyperplasia with lower urinary tract symptoms (principal); R33.8 Other retention of urine; I10 Essential (primary) hypertension; F41.1 Generalized anxiety disorder; E66.9 Obesity, unspecified; Z68.35 Body mass index [BMI] 35.0-35.9, adult; K21.9 Gastro-esophageal reflux disease without esophagitis; E29.1 Testicular hypofunction; G47.33 Obstructive sleep apnea (adult) (pediatric) | CPT/HCPCS: 96127 ==

== ENCOUNTER 2024-12-03 08:57 | Outpatient (REF) | payer OTHER, SELFPAY ==
[2024-12-03 11:46] LABS: Appearance Urine Clear; Color Urine Yellow; Glucose Urine UA Negative (Negative); Leukocyte Esterase Urine Negative (Negative); Nitrite Urine Negative (Negative); Specific Gravity - Urine 1.015 (1.005-1.025); Urine Blood Negative (Negative); Urine Ketones Negative (Negative); Urine Protein Negative (Neg-Trace)
== END 2024-12-03 08:58 | disposition home or self-care (01) ==
LOC: HO.LNP 08:57
PROVIDERS: PCP Internal Medicine
DX: R35.89 Other polyuria (principal)
CPT/HCPCS: 81003

== ENCOUNTER 2024-12-03 08:57 | Outpatient (AMB) | payer OTHER, SELFPAY ==
--- NOTE | 2024-12-03 09:05 | MHC.PC.OV ---
Vital Signs 12/03/24 09:06 Height 5 ft 9 in Weight 245 lb 4 oz BMI 36.2 BP 120/60 Blood Pressure Location Lt brachial Position Sitting Pulse 78 Pulse Source Pulse Oximeter Temp 97.1 F Temp Source Temporal Artery Scan Pulse Oximetry (%) 97 Oxygen Delivery Method Room Air Intake Visit Reasons: lower (R) back pain Intake Note: Patient is here to follow up on Right lower back pain. Healthcare Analyst Required: No Warehouse Distribution Specialist: Not Required per policy Accompanied by: Self / Same As Patient Allergies No Known Allergies Allergy (Verified 12/03/24 09:06) Medication List - Last Reconciled 12/03/24 by Es Lin PA-C cholecalciferol (vitamin D3) 25 mcg PO DAILY [cpap As directed] cyclobenzaprine 5 mg PO TID PRN famotidine 40 mg PO BID meloxicam 15 mg PO DAILY multivitamin 1 tab PO DAILY syringe with needle (Monoject TB) As directed Qweekly testosterone cypionate (Depo-Testosterone) 80 mg (0.4 mL) subcut QWEEK 4 weeks Tobacco use date assessed: 12/03/24 Fall risk assessment: No Falls in past year Last assessed Fall Risk: 12/03/24 Dental Screening Dental Screen Date: 11/11/24 HPI lower (R) back pain HPI Details 64-year-old male with past medical history of hypercholesterolemia, obstructive sleep apnea, impaired glucose tolerance, migraine, GERD, overactive bladder, morbid obesity, hypertension, generalized anxiety disorder last seen 10/[address] Fernandez coming in for acute problem. Patient was seen in [facility] 06/2024 for left-sided back pain diagnosed with UTI and lumbar strain and discharged home with cyclobenzaprine, lidocaine patch, oxycodone and cefuroxime. Presenting with back pain and hip pain. The back pain is predominantly located in the lower right back but occasionally shifts to the left side, present for approximately two weeks. It began after bending forward in a car and worsened when attempting to rise. Describes the pain as a constant dull ache, aggravated by sitting, standing in certain positions, and driving, with severity peaking in these activities. The pain is alleviated slightly by sitting on soft surfaces and using a heating pad. There is an absence of radiating leg pain, sharpness, or burning sensation. 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 There is a decrease in intense pain since the onset but persistent discomfort. Additional medical history reveals complications with urination, including frequency, nocturia, and ineffective medications by his urologist. Denies any new urinary concerns and denies bowel or bladder incontinence. 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 Hypogonadism in male Surgical History History of meniscal tear History of shoulder surgery History of umbilical hernia repair Family History Father TIA (transient ischemic attack) Asthma Stroke Diabetes Hypertension Mother Asthma Cancer Dementia Paternal Grandmother Lung cancer Maternal Aunt Cancer Son Substance use disorder Social History Housing: House Alcohol intake: current Alcohol intake frequency: holidays/special occasions only Comment: once a week 1 beer Patient Tobacco Use Status: Never used Tobacco e-Cigarette/Vaping Use: Never Used Second Hand Smoke Exposure: No service: No Current occupational status: disabled Cognitive needs: No Hearing needs: No Vision needs: Yes (Glasses) Questionnaire Thrive Questionnaire Date Thrive assessed: 11/11/24 JOSE ALEJANDRO-7 AMB Questionnaire JOSE ALEJANDRO-7 Date JOSE ALEJANDRO - 7 assessed: 11/11/24 Source: Developed by Drs. Caesar Gonzalez, Lizzy Love, Gus Espino and colleagues, with an educational klaudia from [employer]. Review of Systems Const Denies body aches, Denies chills, Denies fever(s), Denies headache(s) and Denies poor appetite Eyes Reports no additional complaints ENT Denies dizziness and Denies headache(s) Card Denies chest pain and Denies dyspnea Resp Denies dyspnea GI Denies change in stool character, Denies fecal incontinence, Denies nausea and Denies vomiting Reports as per HPI Musc Reports as per HPI, Reports abnormal gait and Reports back pain Skin/Breast Reports system reviewed and no additional complaints, except as documented Neuro Reports abnormal gait, Denies dizziness and Denies headache(s) Psych Reports no additional complaints Physical exam (Primary Care) Vital Signs: Last Vital Signs Temp 97.1 F 12/03/24 09:06 Pulse 78 12/03/24 09:06 BP 120/60 12/03/24 09:06 Pulse Ox 97 12/03/24 09:06 Oxygen Delivery Method Room Air 12/03/24 09:06 BMI result Body Mass Index 36.2 Tobacco/Smoking Status: Tobacco use Status Tobacco use date assessed 12/03/24 12/03/24 09:10 Patient Tobacco Use Status Never used Tobacco 12/03/24 09:10 e-Cigarette/Vaping Use Never Used 12/03/24 09:10 Thrive Assessment: Date of Thrive Assessment Date Thrive assessed 11/11/24 12/03/24 09:10 Const General: cooperative, healthy appearing, comfortable and no acute distress Orientation/consciousness: patient oriented x3 HENMT Head: Yes normocephalic Ears: hearing grossly normal bilaterally General nose exam: Normal external nose present Eyes General: appearance normal, both eyes and all related structures Conjunctivae: conjunctivae normal Neck Neck: Yes full ROM and Yes no lymphadenopathy Resp Effort & Inspection: normal respiratory effort Auscultation: clear to auscultation bilaterally, no crackles, no rales, no rhonchi and no wheezes Cardio Rate: regular rate Rhythm: regular rhythm Back/Spine/Pelvis Other: Tenderness to palpation over lumbar spine and right paraspinal muscles. Patient unable to tolerate lying flat to perform straight leg raise. Tenderness to lateral aspect of right hip. No pain with lateral raise or extension of the right hip Skin General skin exam: no rashes or lesions noted Neuro General: patient oriented x3 Gait exam (Neuro): Normal gait present Extrem General: Yes normal to inspection, Yes full ROM and No edema Psych Affect: normal affect Attitude: cooperative Insight: Good insight present (Psych) Judgement: Good judgement present (Psych) Coding Level of Care Code Est Pt Level 3 (48521) Diagnoses Right hip pain M25.551 Lumbar strain S39.012A Assessment & Plan Assessment & Plan (1) Right hip pain: Code(s): M25.551 - Pain in right hip Category: Medical Plan: Patient having tenderness to palpation of right hip and very mild pain with lateral raise. Likely arthritic flare versus bursitis. Recommend Tylenol and ibuprofen as needed, heating pads, gentle stretching and muscle relaxer as needed. Patient declining x-rays today as his insurance co-pay is too high if pain persists consider further evaluation through x-ray and PT. (2) Lumbar strain: Code(s): S39.012A - Strain of muscle, fascia and tendon of lower back, initial encounter Category: Medical Plan: Patient having symptoms consistent with lumbar strain. Recommend the use of Tylenol and meloxicam as needed for pain, heating pads and uses cyclobenzaprine as needed. Discussed not to use cyclobenzaprine while operating motor vehicle and meloxicam should be taken with plenty of food and water and not taken along side with any other NSAIDs. Patient understands and agrees to follow up if symptoms worsen or persist. Also encouraged gentle stretching and can consider referral to PT or x-ray evaluation if symptoms persist. Given patient's history of urinary tract infections plan to obtain urine as well. He was unable to provide a sample in the office and was sent home with a collection cup to bring to the office at his convenience. Plan The patient presents with a suspected lumbar strain and associated hip discomfort suggestive of arthritis. I will employ a conservative approach utilizing NSAIDs and muscle relaxants to manage pain and muscle discomfort. Emphasized the use of heating pads for alleviation. An evaluation of the patient's urinary conditions will continue with a urine test, considering his history of nocturia and unchanged symptoms. No radiological imaging will be pursued unless symptom escalation suggests otherwise. If symptoms persist, physical therapy will be considered to restore musculoskeletal function. Ongoing monitoring for any progression or emergence of new symptoms will be essential. Further assessment of insurance coverage for potential physical therapy referrals was noted. This note was constructed using voice recognition software. While every effort has been made to ensure accuracy and lens edger, still areas may have been included sometimes these areas may affect the content or meeting of the given symptoms. Total time spent caring for the patient today was twenty minutes. This includes time spent before the visit reviewing the chart, time spent during the visit, and time spent after the visit and documentation. Patient was informed and verbally consented to the use of an ambient scribe for clinic note documentation during this visit. Medications: New meloxicam 15 mg PO DAILY 30 tabs 0RF Refilled cyclobenzaprine 5 mg PO TID PRN 30 tabs 0RF muscle spasm
[2024-12-03 09:06] VITALS: BP 120/60; PULSE 78; TEMP 36.2; O2SAT 97; BMI 36.2
--- OUTSIDE RECORDS SUMMARY | 2024-12-03 09:25 | XMS_ITS | Patient Health Record ---
Author Organization [facility] Address [address] [place] [address] Care Team Providers Care Parole Director Name Role Phone Marybel Fernandez MD Primary Care Provider Caesar Barraza [phone] Reason For Referral No Information Medications Medication [...] Problem Status W/U Status Risk Notes Problem 972341090 Encounter for screening for malignant neoplasm of colon (Z12.11) Active confirmed Problem 420872939 History of adenomatous polyp of colon (Z86.010) Active confirmed Problem Diverticular disease of colon (230574405) Diverticulosis of large intestine without perforation or abscess without bleeding (K57.30) Active confirmed Problem Gastroesophageal reflux disease (298998613) Gastroesophageal reflux disease (K21.9) Active confirmed Problem 515130965 Preprocedural examination (Z01.818) Active confirmed Problem Gastritis (6878757) Gastritis (K29.70) Active c onfirmed Problem Belching (073731159) Belching (R14.2) Active confirmed Plan Of Treatment Future Test Test Name Order Date COLONOSCOPY 07/12/2011 COLONOSCOPY 12/28/2016 UPPER GI ENDOSCOPY 07/21/2022 COLONOSCOPY 07/21/2022 Insurance Providers Payer Name Payer Address Payer Phone Subscriber Number Group Number Insured Name Patient Relationship to Insured Coverage Start Date Coverage End Date [facility] [address] [place] [address] [id number] GLORIA CLAIRE Self - patient is the insured Medical (General) History Medical History History ICD Code Denies MS,DM,CVA,Lung disease,renal dise ase Screening colonoscopy in 2010--small [...]
== END 2024-12-03 10:02 | disposition home or self-care (01) ==
LOC: HO.HMCH 08:58
PROVIDERS: PCP Internal Medicine
DX: M25.551 Pain in right hip (principal); S39.012A Strain of muscle, fascia and tendon of lower back, initial encounter

== ENCOUNTER 2025-01-14 14:38 | Outpatient (AMB) | payer OTHER, SELFPAY ==
[2025-01-14 14:43] VITALS: BP 130/90; PULSE 94; O2SAT 96; BMI 36.0
--- NOTE | 2025-01-14 14:43 | MHC.OFFVIS ---
Vital Signs 01/14/25 14:43 Height 5 ft 9 in Weight 243 lb 9.773 oz BMI 36.0 BP 130/90 H Blood Pressure Location Lt brachial Position Sitting Pulse 94 Pulse Source Pulse Oximeter Pulse Oximetry (%) 96 Oxygen Delivery Method Room Air Intake Visit Reasons: Obstructive sleep apnea Intake Note: pt is here for pepper follow up, he states he has always been tired but lately it it worse, tired with doing anything. Allergies No Known Allergies Allergy (Verified 01/14/25 15:08) Medication List - Last Reconciled 01/14/25 by Rafael Cramer MD cholecalciferol (vitamin D3) 25 mcg PO DAILY [cpap As directed] famotidine 40 mg PO BID multivitamin 1 tab PO DAILY syringe with needle (Monoject TB) As directed Qweekly testosterone cypionate (Depo-Testosterone) 80 mg (0.4 mL) subcut QWEEK 4 weeks Do you need a note to return to daycare/school/sports/work: No HPI HPI Obstructive sleep apnea: Details: This 64 years old gentleman , is grossly obese and has obstructive sleep apnea. He is here for 6 months follow-up. 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 He remains grossly obese, and not able to lose weight. Complains of being tired, all the times. He denies of any chest pain, cough, or wheezing . He claims that his sleep is somewhat interrupted because he has to go to the bathroom a few times during the night. But his compliance report indicates that he is using the CPAP for more than 7 hours every night and 100% of the nights. 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 Hypogonadism in male Surgical History History of meniscal tear History of shoulder surgery History of umbilical hernia repair Family History Father TIA (transient ischemic attack) Asthma Stroke Diabetes Hypertension Mother Asthma Cancer Dementia Paternal Grandmother Lung cancer Maternal Aunt Cancer Son Substance use disorder Social History Housing: House Alcohol intake: current Alcohol intake frequency: holidays/special occasions only Comment: once a week 1 beer Patient Tobacco Use Status: Never used Tobacco e-Cigarette/Vaping Use: Never Used Second Hand Smoke Exposure: No service: No Current occupational status: disabled Cognitive needs: No Hearing needs: No Vision needs: Yes (Glasses) Review of Systems Const All systems reviewed & are unremarkable except as noted in HPI and below Reports fatigue (MILD) Eyes Reports no additional complaints ENT Reports no additional complaints Card Denies chest pain, Denies irregular heart rhythm and Denies leg edema Resp Reports no additional complaints GI Reports no additional complaints Reports erectile dysfunction and Reports nocturia Musc Reports back pain (MILD) Skin/Breast Reports system reviewed and no additional complaints, except as documented Neuro Reports no additional complaints Psych Reports anxiety (CONTROLLED WITH MED) Endo Reports fatigue (MILD) Sae/Lymph Reports no additional complaints Physical Exam Vital Signs: Last Vital Signs Pulse 94 01/14/25 14:43 BP 130/90 H 01/14/25 14:43 Pulse Ox 96 01/14/25 14:43 Oxygen Delivery Method Room Air 01/14/25 14:43 BMI result Body Mass Index 36.0 Const General: healthy appearing (Except for being overweight), comfortable, no acute distress, alert and awake Orientation/consciousness: patient oriented x3 HEENT Head: Yes normal to inspection General nose exam: No nasal polyps present and No nasal discharge present Face and sinus: Yes sinuses nontender Mouth: oropharynx normal Throat: Yes posterior oropharynx normal Eyes General: appearance normal, both eyes and all related structures Neck Neck: Yes normal visual inspection, Yes no lymphadenopathy, Yes trachea midline and Yes no JVD Thyroid: Thyroid normal Chest Chest palpation & inspection: normal inspection of the chest, normal palpation of entire chest wall and no tenderness Resp Effort & Inspection: normal respiratory effort Auscultation: clear to auscultation bilaterally, no crackles and no wheezes Percussion: percussion normal Cardio Palpation: normal PMI Rate: regular rate Rhythm: regular rhythm Heart sounds: no gallops and no murmurs Peripheral pulses: Peripheral pulses 2+ throughout GI Palpation (GI): Soft to palpation, nontender, No hepatosplenomegaly present, no masses and Other GI palpation findings present (Abdomen is obese and protuberant) Auscultation: normal bowel sounds Back/Spine/Pelvis Thoracic/Lumbar Spine: thoracic and lumbar spine normal to inspection Skin General skin exam: no rashes or lesions noted Neuro General: patient oriented x3 and no focal motor deficits Cranial nerves: Yes CN's II-XII intact bilaterally Extrem General: Yes normal to inspection, Yes no clubbing, cyanosis or edema and Yes no calf tenderness Psych Appearance: grossly normal and well kempt Speech and movement: Normal speech and movement present Results Reviewed Results Reviewed: COMPLIANCE REPORT FOR THE LAST 30 NIGHTS IS REVIEWED. HE HAS USED 30/30 NIGHTS, 100%. AVERAGE USE IT PER NIGHT 7 HOURS 38 MINUTES. PRESSURE USED 14-15 CM. RESIDUAL AHI ONLY 1.0 Assessment & Plan Assessment & Plan (1) Obstructive sleep apnea: Comment: IS A WELL KNOWN CASE OF OBSTRUCTIVE SLEEP APNEA, WHICH IS BEING TREATED WITH USE OF CPAP. REMAINS VERY COMPLIANT, GOOD SLEEP FOR ABOUT 7 HOURS EVERY NIGHT. COMPLIANCE REPORT IS GOOD. Code(s): G47.33 - Obstructive sleep apnea (adult) (pediatric) Category: Medical Plan: DISCUSSED ABOUT THE COMPLIANCE AND ENCOURAGED TO KEEP ON USING CPAP EVERY NIGHT. (2) Obesity (BMI 30-39.9): Comment: REMAINS GROSSLY OBESE, CURRENT BMI 36, HE HAS LOST A FEW LB IN THE LAST 6 MONTHS. Code(s): E66.9 - Obesity, unspecified Category: Medical Plan: ADVISE THAT HE NEEDS TO DO SOME EXERCISE AND WALK ON A DAILY BASIS. ALSO NEEDS TO CONTROL HIS DIET AND NOW THAT HE IS RETIRED HE SHOULD BECOME MORE ACTIVE. OTHERWISE I AM AFRAID THAT HE MAY START PUTTING. ON MORE WEIGHT Coding Level of Care Code Est Pt Level 3 (44957) Diagnoses Obstructive sleep apnea G47.33 Obesity (BMI 30-39.9) E66.9
--- OUTSIDE RECORDS SUMMARY | 2025-01-14 16:26 | XMS_ITS | Patient Health Record ---
Author Organization [facility] Address [address] [place] [address] Care Team Providers Care Transition Mgr Name Role Phone Marybel Fernandez MD Primary Care Provider Caesar Barraza [phone] Reason For Referral No Information Medications Medication [...] Problem Status W/U Status Risk Notes Problem 014740603 Encounter for screening for malignant neoplasm of colon (Z12.11) Active confirmed Problem 456176996 History of adenomatous polyp of colon (Z86.010) Active confirmed Problem Diverticular disease of colon (152613722) Diverticulosis of large intestine without perforation or abscess without bleeding (K57.30) Active confirmed Problem Gastroesophageal reflux disease (K21.9) Active confirmed Problem 913338658 Preprocedural examination (Z01.818) Active confirmed Problem Gastritis (9986704) Gastritis (K29.70) Active confirmed Problem Belching (545669312) Belching (R14.2) Active confirmed Plan Of Treatment Future Test Test Name Order Date COLONOSCOPY 07/12/2011 COLONOSCOPY 12/28/2016 UPPER GI ENDOSCOPY 07/21/2022 COLONOSCOPY 07/21/2022 Insurance Providers Payer Name Payer Address Payer Phone Subscriber Number Group Number Insured Name Patient Relationship to Insured Coverage Start Date Coverage End Date [facility] [address] [place] [address] [id number] GLORIA CLAIRE Self - patient is the insured Medical (General) History Medical History History ICD Code Denies MD,DM,CVA,Lung disease,renal dise ase Screening colonoscopy in 2010--small [...]
== END 2025-01-14 15:08 | disposition home or self-care (01) ==
LOC: HO.HPS 14:38
PROVIDERS: PCP Internal Medicine; Visit Provider Internal Medicine
DX: G47.33 Obstructive sleep apnea (adult) (pediatric) (principal); E66.9 Obesity, unspecified
CPT/HCPCS: 99213

== ENCOUNTER → 2025-01-14 14:38 | Outpatient (BNVA) | payer OTHER, SELFPAY | PROVIDERS: PCP Internal Medicine; Visit Provider Internal Medicine ==

== ENCOUNTER 2025-03-01 07:04 | Outpatient (REF) | payer OTHER, SELFPAY ==
--- OUTSIDE RECORDS SUMMARY | 2025-03-01 07:07 | XMS_ITS | Patient Health Record ---
Author Organization [facility] Address [address] [place] [address] Care Team Providers Care Paper Box Maker Name Role Phone Marybel Fernandez MD Primary Care Provider Caesar Barraza [phone] Reason For Referral No Information Medications Medication [...] Problem Status W/U Status Risk Notes Problem 503785435 Encounter for screening for malignant neoplasm of colon (Z12.11) Active confirmed Problem 391749777 History of adenomatous polyp of colon (Z86.010) Active confirmed Problem Diverticular disease of colon (077537952) Diverticulosis of large intestine without perforation or abscess without bleeding (K57.30) Active confirmed Problem Gastroesophageal reflux disease (K21.9) Active confirmed Problem 859218125 Preprocedural examination (Z01.818) Active confirmed Problem Gastritis (8465929) Gastritis (K29.70) Active confirmed Problem Belching (176159615) Belching (R14.2) Active confirmed Plan Of Treatment Future Test Test Name Order Date COLONOSCOPY 07/12/2011 COLONOSCOPY 12/28/2016 UPPER GI ENDOSCOPY 07/21/2022 COLONOSCOPY 07/21/2022 Insurance Providers Payer Name Payer Address Payer Phone Subscriber Number Group Number Insured Name Patient Relationship to Insured Coverage Start Date Coverage End Date [facility] [address] [place] [address] [id number] GLORIA CLAIRE Self - patient is the insured Medical (General) History Medical History History ICD Code Denies SC,DM,CVA,Lung [...]
[2025-03-01 08:18] LABS: Hematocrit 40.6 % (42.0-52.0); Hemoglobin 13.5 g/dl (14.0-18.0); Mean Corpuscular HGB Conc 33.3 g/dl (31.0-36.0); Mean Corpuscular Hemoglobin 25.0 pg (27.0-33.0); Mean Corpuscular Volume 75.2 fL (80.0-98.0); NRBC Abs Auto 0.000 X10*3/uL (0.0-0.012); NRBC Pct Auto 0.0 /100WBC (0.0-0.2); Platelet Count 261 X10*3/uL (160-400); Red Blood Count 5.40 X10*6/uL (4.60-5.80); White Blood Count 4.8 X10*3/uL (4.8-10.8)
[2025-03-01 09:26] LABS: Prostate Specific Antigen 3.89 ng/mL (<0.05-4.0)
== END 2025-03-01 07:05 | disposition home or self-care (01) ==
LOC: HO.LAB 07:04
PROVIDERS: PCP Internal Medicine; Visit Provider Urology
DX: E29.1 Testicular hypofunction (principal)
CPT/HCPCS: 36415; 84153; 84403; 85027

== ENCOUNTER 2025-03-11 11:39 | Outpatient (AMB) | payer MEDICARE, SELFPAY ==
--- NOTE | 2025-03-11 11:44 | A.OFFVIS_ITS ---
Intake Visit Reasons: 6m/labs Intake Note: Patient presents for 6 mo follow up for OAB and hypogonadism Labs done 03/01/2025: * testosterone:456 * PSA:3.89 * PVR 176 mls Urology Medication: Testosterone Antibiotic Allergies:None Blood Thinners:None Carroting Machine Offbearer Required: No Accompanied by: Self / Same As Patient Allergies No Known Allergies Allergy (Verified 03/11/25 11:46) HPI Comments Details: Adonis CLAIRE is a very pleasant male. He is a patient Dr Fernandez. He is seen for the following urologic conditions - hypogonadism - lower urinary tract symptoms - primarily de Jun overactive bladder following prostate procedure Not interested in InterStim Discussed potential benefit from weight loss. Acknowledged this would not be an easy thing to do. Testosterone - 03/07 450 P 3.9 Lab work in reasonable range Continue current dosing Still feeling fatigued. Has been seen for his CPAP machine. Suggest potential use of GLP 1 which is now approved for CPAP in the setting of obesity. Hypogonadism: Testosterone at 500 Continue with 0.4 cc subcu weekly He presents today for further evaluation and followup of his hypogonadism. Initial symptoms include erectile dysfunction Yes decreased libido Yes change in mood/depression Yes in muscle size/strength Yes increased fatigue/malaise Yes The onset of symptoms has been gradual. Associate conditions include obstructive sleep apnea Yes Treatment since 2011 CAD No obesity Yes stress - financial, family, employment No heavy alcohol or illicit drug use No Laboratory results 01/30 , baseline T 199, FSH 4.5, Est 35 Low testosterone with elevated FSH and estrogen consistent with estrogen shunting with appropriate pituitary response 03/01 T 188 Est 16 Free T 41 06/01 T 271, 08/01 T260, 03/02 T , PSA 1.4 - 09/03 T 491, PSA 2.2, 05/04 T 598 P 3.2, 06/04 T 475 PSA 2.9, 06/05 590 3.6, 12/05 T 488 Prior therapy includes 08/01 Testosterone gel with minimal effect. 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 Lower Urinary Tract Symptoms: Detrusor Hyperactivity and impaired contractility Current visit is for further evaluation of, lower urinary tract symptoms, predominate irritative with weak stream Current treatment includes - Previously trialed Flomax with minimal response, oxybutynin with poor response, tolterodine and myrbetriq, doxazosin, bethanechol - 06/04 Botox to bladder - marginal effect Prostate Symptom Score 9/ , Moderate (9-19), Bother 4. Symptoms include 05/02 , weak stream, frequency, and are progressing Investigations - October 2020 cystoscopy open bladder neck from prior TURP Testing at next visit will include bladder scan. 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 Hypogonadism in male Surgical History History of meniscal tear History of shoulder surgery History of umbilical hernia repair Family History Father TIA (transient ischemic attack) Asthma Stroke Diabetes Hypertension Mother Asthma Cancer Dementia Paternal Grandmother Lung cancer Maternal Aunt Cancer Son Substance use disorder Social History Housing: House Alcohol intake: current Alcohol intake frequency: holidays/special occasions only Comment: once a week 1 beer Patient Tobacco Use Status: Never used Tobacco e-Cigarette/Vaping Use: Never Used Second Hand Smoke Exposure: No service: No Current occupational status: disabled Cognitive needs: No Hearing needs: No Vision needs: Yes (Glasses) Review of Systems Const Denies chills and Denies fever(s) Card Reports no additional complaints and Denies syncope Resp Denies cough GI Denies abdominal pain and Denies heartburn Reports as per HPI and Denies change in libido Neuro Denies syncope Psych Denies change in libido Endo Denies change in libido Physical Exam Const General: cooperative, healthy appearing, comfortable and no acute distress Orientation/consciousness: patient oriented x3 HEENT Face and sinus: Yes normal facial exam Mouth: moist mucous membranes Neck Neck: Yes normal visual inspection, Yes full ROM and Yes trachea midline Chest Chest palpation & inspection: normal inspection of the chest Resp Effort & Inspection: normal respiratory effort, able to speak in complete sentences and no respiratory distress GI Inspection: Yes normal to inspection Back/Spine/Pelvis Cervical Spine: normal cervical lordosis Thoracic/Lumbar Spine: thoracic and lumbar spine normal to inspection Skin General skin exam: no rashes or lesions noted Neuro General: patient oriented x3, gait normal, tone normal and moves all extremities Extrem General: Yes normal to inspection and Yes capillary refill normal Office Procedures Post Void Residual Post Residual Void Post Void Residual (PVR): 176 [id number] Void Residual by ultrasound Results AMB Urinalysis, Automated UA Leukoctes 0 Levy/uL Last Edit by Willow Bender MA on 03/11/25 15:49 UA Nitrite Negative Last Edit by Willow Bender MA on 03/11/25 15:49 UA Urobilinogen 0.2 mg/dL Last Edit by Willow Bender MA on 03/11/25 15:49 UA Protein 0 mg/dL Last Edit by Willow Bender MA on 03/11/25 15:49 UA pH 8.0 Last Edit by Willow Bender MA on 03/11/25 15:49 UA Blood 0 Chau/uL Last Edit by Willow Bender MA on 03/11/25 15:49 UA Specific Brock 1.005 Last Edit by Willow Bender MA on 03/11/25 15:49 UA Ketone Negative Last Edit by Willow Bender MA on 03/11/25 15:49 UA Bilirubin 0 mg/dL Last Edit by Willow Bender MA on 03/11/25 15:49 UA Glucose 0 mg/dL Last Edit by Willow Bender MA on 03/11/25 15:49 Results Reviewed Results Reviewed: Laboratory Last Values Urine pH (Auto) 8.0 03/11/25 12:01 Specific Brock (Auto) 1.005 03/11/25 12:01 Urine Protein (Auto) 0 mg/dL 03/11/25 12:01 Glucose (UA)(Auto) 0 mg/dL 03/11/25 12:01 Urine Ketones (Auto) Negative 03/11/25 12:01 Urine Blood (Auto) 0 Chau/uL 03/11/25 12:01 Urine Nitrite (Auto) Negative 03/11/25 12:01 Urine Bilirubin (Auto) 0 mg/dL 03/11/25 12:01 Urine Urobilinogen (Auto) 0.2 mg/dL 03/11/25 12:01 Leukocyte Esterase (Auto) 0 Levy/uL 03/11/25 12:01 Assessment & Plan Assessment & Plan (1) Hypogonadism in male: Code(s): E29.1 - Testicular hypofunction Category: Medical (2) Nocturia more than twice per night: Code(s): R35.1 - Nocturia Category: Medical Plan Continue testosterone Orders: Orders AMB Urinalysis Automated Today Z13.9 - Encounter for screening, unspecified Hematocrit 5 Months E29.1 - Testicular hypofunction AMB Post Void Residual by ultrasound Today R33.9 - Retention of urine, unspecified Testosterone, Total 5 Months E29.1 - Testicular hypofunction Prostate Specific Antigen 5 Months E29.1 - Testicular hypofunction Medications: Refilled testosterone cypionate (Depo-Testosterone) 80 mg (0.4 mL) subcut QWEEK 4 mL 5RF 4 weeks [id number], R36.1 - Hematospermia Patient Instructions: This note is constructed using voice recognition software. While every effort has been made to ensure accuracy it consulting director errors may have been included. Imaging studies, laboratory and physical exam results were discussed and reviewed in detail. No major barriers to patient understanding were identified. An opportunity to ask questions regarding the treatment plan was provided. All questions were answered. The patient expressed understanding and agreement with the above treatment plan. The patient is aware they should contact our office by phone for worsening of their current condition or the appearance of new urologic symptoms. Compliance is encouraged with any medications and followup testing that is ordered. It is a privilege to participate in the urologic care of your patient. If you have any questions or concerns regarding treatment for the above conditions, or other urologic issues, please do not hesitate to contact me. The office telephone contact is [phone]. Sincerely, Dr Harjit Awan MD, LISA [facility] - Urology Compassionate Specialist Care for the Genitourinary System Coding Level of Care Code Est Pt Level 3 (39595) Complex EM visit Add On G2211 Diagnoses Hypogonadism in male E29.1 Nocturia more than twice per night R35.1 CPT Codes Post Residual Void - PVR CPT Code: 63204-Bqwt Void Residual by ultrasound ([id number])
--- OUTSIDE RECORDS SUMMARY | 2025-03-11 12:47 | XMS_ITS | Patient Health Record ---
Author Organization [facility] Address [address] [place] [address] Care Team Providers Care Sack Cleaning Hand Name Role Phone Marybel Fernandez MD Primary Care Provider Caesar Barraza [phone] Reason For Referral No Information Medications Medication [...] Problem Status W/U Status Risk Notes Problem [id number] Encounter for screening for malignant neoplasm of colon (Z12.11) Active confirmed Problem 590097599 History of adenomatous polyp of colon (Z86.010) Active confirmed Problem Diverticular disease of colon (551142853) Diverticulosis of large intestine without perforation or abscess without bleeding (K57.30) Active confirmed Problem Gastroesophageal reflux disease (301364118) Gastroesophageal reflux disease (K21.9) Active confirmed Problem 725202587 Preprocedural examination (Z01.818) Active confirmed Problem Gastritis (1226285) Gastritis (K29.70) Active c onfirmed Problem Belching (214781197) Belching (R14.2) Active confirmed Plan Of Treatment Future Test Test Name Order Date COLONOSCOPY 07/12/2011 COLONOSCOPY 12/28/2016 UPPER GI ENDOSCOPY 07/21/2022 COLONOSCOPY 07/21/2022 Insurance Providers Payer Name Payer Address Payer Phone Subscriber Number Group Number Insured Name Patient Relationship to Insured Coverage Start Date Coverage End Date [facility] [address] [place] [address] [id number] GLORIA CLAIRE Self - patient is the insured Medical (General) History Medical History History ICD Code Denies DE,DM,CVA,Lung disease,renal dise ase Screening colonoscopy in 2010--small [...]
== END 2025-03-11 12:17 | disposition home or self-care (01) ==
LOC: HO.HUSH 11:40
PROVIDERS: PCP Internal Medicine; Visit Provider Urology
DX: E29.1 Testicular hypofunction (principal); R35.1 Nocturia; Z13.9 Encounter for screening, unspecified
CPT/HCPCS: 99213; G2211

== ENCOUNTER → 2025-03-11 11:39 | Outpatient (BNVA) | payer MEDICARE, SELFPAY | PROVIDERS: PCP Internal Medicine; Visit Provider Urology | DX: E29.1 Testicular hypofunction (principal); R35.1 Nocturia | CPT/HCPCS: 51798; 81003; 99212 ==